=== PATIENT | female | born 1955 | race Caucasian/White ===

== ENCOUNTER 2019-06-18 07:00 | Inpatient (IN) ==
[2019-06-18] MEDS ORDERED: TORADOL IV ONE (07:59)
[2019-06-18] MEDS ORDERED: BENADRYL IV ONE (07:59)
[2019-06-18] MEDS ORDERED: ZOSYN 4.5 GM in NS 100 ML IV ONE (07:59)
[2019-06-18] MEDS ORDERED: REGLAN IV ONE (07:59)
[2019-06-18] MEDS ORDERED: DILAUDID IV ONE ×2 (07:59→09:56)
[2019-06-18] MEDS ORDERED: NS 1,000 ML IV ONE ×2 (07:59→09:51)
[2019-06-18 08:59] LABS: URINE SOURCE CLEAN CATCH
[2019-06-18 09:05] LABS: BILIRUBIN URINE NEGATIVE (NEGATIVE); BLOOD URINE NEGATIVE (NEGATIVE); COLOR YELLOW; GLUCOSE URINE NEGATIVE (NEGATIVE); KETONE URINE NEGATIVE (NEGATIVE); LEUKOCYTES URINE NEGATIVE (NEGATIVE); NITRITE URINE NEGATIVE (NEGATIVE); PH URINE 5.5; PROTEIN URINE TRACE mg/dL (NEGATIVE); SP GRAVITY URINE 1.023; TURBIDITY URINE HAZY (CLEAR); UROBILINOGEN URINE NORMAL (NORMAL)
[2019-06-18 09:16] LABS: UR EPITHELIAL CELLS >10 /HPF (<10); URINE BACTERIA NEGATIVE /HPF; URINE RBC <10 /HPF (<10); URINE WBC <10 /HPF (<10)
[2019-06-18 09:19] LABS: URINE CRYSTALS NONE SEEN
--- NOTE | 2019-06-18 09:42 | Diag Imaging Result Doc PS360 ---
CT ABD/PELVIS W/IV CONT ONLY - 06/18/2019 INDICATION: RLQ abdominal pain COMPARISON: 06/06/2017 FINDINGS: Stable breast implants. Lung volumes are low with some scattered linear atelectasis in the lung bases. No dense infiltrates. Heart size is normal with no pericardial effusion. The vermiform appendix is not particularly dilated, measuring only about 7 mm. The appendix is fluid-filled. However there is an extensive inflammatory process centered around the right lower quadrant and the appendix, with a few tiny bubbles of extra visceral gas. No significant or drainable fluid collection. This is in close proximity to a loop of sigmoid colon containing numerous diverticula. There is also wall thickening of the sigmoid colon here adjacent to this inflammatory process indicating colitis. There is trace pelvic free fluid. The gallbladder is absent. Otherwise solid abdominal organs are normal. Uterus is absent. Urinary bladder and rectum are normal. There are moderate degenerative changes of the spine. No acute or suspicious bony lesion. IMPRESSION: Extensive acute inflammatory process involving both the vermiform appendix, which is nondilated, and the sigmoid colon, which demonstrates wall thickening and numerous diverticula. This indicates either minimally perforated sigmoid diverticulitis or unusual appearance of appendicitis. There is trace free air. No drainable fluid collections. This report was discussed with Dr. Winkler on 06/18/2019 at 9:39 AM and was readback. This exam was performed using automated exposure control, adjustment of mA or kV according to patient size, and/or use of iterative reconstruction technique Electronically signed by Chadd Castro 06/18/2019 9:39 AM
[2019-06-18] MEDS ORDERED: FLAGYL 500 MG/NS 500 MG/100 ML IVPB IV ONE (09:46)
--- NOTE | 2019-06-18 09:48 | PROVIDER DOCUMENTATION ---
HPI-Abdominal Pain/GI Problem - General Chief Complaint: Abdominal Pain Stated Complaint: abd pain Time Seen by Provider: 06/18/19 07:51 Source: patient, family Allergies/Adverse Reactions: Patient Allergies Allergy/AdvReac Type Severity Reaction Status Date / Time codeine AdvReac NAUSEA/VOMI Verified 03/16/16 21:21 TING morphine AdvReac VOMITING Verified 03/16/16 21:21 naproxen [From Naprosyn] AdvReac NAUSEA/VOMI Verified 03/16/16 21:21 TING ondansetron AdvReac NAUSEA/VOMI Verified 05/18/17 23:17 [From Zofran (as TING hydrochloride)] Home Medications: Home Medication List Medication Instructions Recorded Confirmed Last Taken Type Levothyroxine [Synthroid] 125 microgm PO DAILY 07/15/15 10/30/17 10/30/17 History Metformin [Glucophage] 500 mg PO BID PRN PRN 05/08/17 10/30/17 10/27/17 History Omeprazole [Prilosec] 40 mg PO DAILY PRN PRN 05/08/17 10/30/17 10/30/17 History Polyethylene Glycol 3350 [Miralax] 17 gm PO DAILY PRN PRN 05/08/17 10/30/17 10/30/17 History Zolpidem [Ambien] 10 mg PO QHS 10/30/17 10/30/17 10/29/17 History Famciclovir [Famvir] 500 mg PO Q8HR #21 tab 05/31/19 Unknown Rx Gabapentin [Neurontin] 100 mg PO TID #90 cap 05/31/19 Unknown Rx Ketorolac [Toradol] 10 mg PO Q6H PRN PRN #30 tab 05/31/19 Unknown Rx - History of Present Illness-ABD Nature of Presenting Problems: RLQ abdominal pain since last night, gradually getting worse. Also n/v/d and chills. No blood in stool or vomit. Pain is severe. Called 911 because it hurt too much to walk. Recently been on antibiotics and antivirals for "shingles" Abdominal Pain Onset Location: reports: RLQ Pain Radiation: reports: no radiation Quality of Pain: reports: sharp, stabbing Severity in ED: reports: severe Onset/Duration: reports: 24 hours ago Timing: reports: still present, constant, getting worse Activities at Onset: reports: light activity. denies: out of country travel Exposure to sick contacts?: No Modifying Factors: improves with: nothing. worse with: coughing, movement, palpation Associated Symptoms: reports: diarrhea, fever/chills, nausea, vomiting Last BM: this morning Dark Stools Present?: reports: none noticed Rectal Bleeding: reports: none # of Vomiting Episodes: 3 Emesis Description: reports: clear Bruising or Bleeding Gums?: No Similar Symptoms Previously?: No Recently seen or treated by another doctor?: Yes (Dr. Francisco) Review of Systems - Adult - REVIEW OF SYSTEMS - ADULT Constitutional: reports: no symptoms reported Eyes: reports: no symptoms reported Ears, Nose, Mouth & Throat: reports: no symptoms reported Cardiovascular: reports: no symptoms reported Respiratory: reports: no symptoms reported Gastrointestinal: reports: no symptoms reported Genitourinary: reports: no symptoms reported Musculoskeletal: reports: no symptoms reported Integumentary: reports: no symptoms reported Neurological: reports: no symptoms reported Psychiatric: reports: no symptoms reported Endocrine: reports: no symptoms reported Hematologic/Lymphatic: reports: no symptoms reported Allergic/Immunologic: reports: no symptoms reported All Other Systems: Reviewed and Negative Past History - Adult - PAST MEDICAL HISTORY-ADULT Review of Records: reports: Old Records Reviewed, Nursing Assessment Review, Medications Reviewed, Social history reviewed & non-contributory. Major Childhood Illnesses: reports: denies history Cardiovascular: reports: denies history Respiratory: reports: denies history Gastrointestinal: reports: diverticulosis Obstetrical/Gynecological: reports: denies history Genitourinary: reports: denies history Musculoskeletal: reports: denies history Neurological: reports: denies history Psychiatric: reports: anxiety Endocrine/Immune: reports: Diabetes, thyroid disorder Diabetes Type: Type 2 Diabetes controlled by:: PO Meds Other Conditions: reports: denies history - PRIOR SURGERIES/PROCEDURES Surgical/Procedure History: reports: reviewed, not pertinent, cholecystectomy, hysterectomy - IMMUNIZATION STATUS Childhood Immunizations: See Nurse Assessment Flu Vaccine: See Nurse Assessment - FAMILY HISTORY Family History: reviewed, not pertinent - SOCIAL HISTORY Smoking: non-smoker Substance Use: none/never Alcohol Use Frequency: rarely Living Situation: family Physical Exam-General - PHYSICAL EXAM-ADULT Initial Vital Signs Reviewed: Yes (VSSAF) - CONSTITUTIONAL General Appearance: appears well (but in pain, lying on left side), alert, mild distress - EYES Eyes: PERRL/EOMI, pink conjunctivae - HEAD, EARS, NOSE, MOUTH & THROAT HENMT: normocephalic/atraumatic, normal ENT inspection, pharynx normal. negative: moist mucous membranes (dry) - NECK Neck: full range of motion, supple, normal inspection - RESPIRATORY Respiratory: lungs clear, normal breath sounds, no pleuratic chest pain, no respiratory distress, no accessory muscle use - CARDIOVASCULAR Cardiovascular: normal peripheral pulses, regular rate, rhythm, no edema, no gallop, no JVD, no murmur - GASTROINTESTINAL (ABDOMEN) Abdominal Exam: no organomegaly, no pulsatile mass, abnormal bowel sounds (hypoactive), distended, guarding, rebound, tenderness (RLQ), McBurney's point tenderness, obturator sign, psoas sign, Rovsing's sign. negative: normal bowel sounds, non tender, soft, De La Torre's sign - LYMPHATIC Lymphatic: no adenopathy - MUSCULOSKELETAL Back Exam: normal inspection, no CVA tenderness, no vertebral tenderness. negative: decreased range of motion Extremity: normal range of motion, non-tender, normal gait, normal inspection, no pedal edema, no calf tenderness, normal capillary refill - SKIN Integumentary: normal color, normal turgor, warm/dry - NEUROLOGIC Neurologic: technical support analyst II-XII nml as tested, grossly normal, no motor/sensory deficits - PSYCHIATRIC Psych/Mental Status: normal mood/affect, normal thought content, normal thought process, oriented x 3 Progress - PLAN OF CARE/RESULTS Progress/Plan/Lab Results: Vital Signs - 8 hr 06/18/19 07:17 Temperature 99.5 F Pulse Rate 94 H Respiratory Rate 20 Blood Pressure 121/78 O2 Sat by Pulse Oximetry 93 L Laboratory Results - last 24 hr 06/18/19 08:54 Urine Source CLEAN CATCH Urine Color YELLOW Urine Turbidity HAZY Urine pH 5.5 Ur Specific [place] 1.023 Urine Protein TRACE A Ur Glucose (Stick) NEGATIVE Ur Ketones (Stick) NEGATIVE Urine Blood NEGATIVE Urine Nitrite NEGATIVE Urine Bilirubin NEGATIVE Urobilinogen Dipstick NORMAL Urine Leukocytes NEGATIVE Urine WBC (Auto) <10 Urine RBC (Auto) <10 U Epithel Cells (Auto) >10 A Urine Bacteria (Auto) NEGATIVE Urine Crystals NONE SEEN Small Round Cells Not Reportable Urine Casts Not Reportable Urine Yeast-like Cells Not Reportable Orders Category Date Time Status NEWS Score 2-4:Order NEWS Lactate Series NOW Care 06/18/19 07:25 Active Saline Loc DIRECTED Care 06/18/19 07:58 Active NPO Diet 06/18/19 07:[address] ABD/PELVIS W/IV CONT ONLY [CT] Stat Exams 06/18/19 09:20 Taken FLAT/UPRIGHT ABD/1 VIEW CHEST [RAD] Stat Exams 06/18/19 07:58 Ordered AMYLASE [CHEM] Stat Lab 06/18/19 07:58 Uncollected BLOOD CULTURE [BLDCUL] Stat Lab 06/18/19 07:59 Uncollected C REACTIVE PROT QUANT [CHEM] Stat Lab 06/18/19 08:00 Uncollected CBC WITH ELECTRONIC DIFF [HEME] Stat Lab 06/18/19 07:58 Uncollected COMPREHENSIVE METABOLIC PANEL [CHEM] Stat Lab 06/18/19 07:58 Uncollected LACTATE, PLASMA [CHEM] Q3H Lab 06/18/19 07:30 Uncollected LACTATE, PLASMA [CHEM] Q3H Lab 06/18/19 10:30 Uncollected LACTATE, PLASMA [CHEM] Q3H Lab 06/18/19 13:30 Uncollected LIPASE [CHEM] Stat Lab 06/18/19 07:58 Uncollected TYPE & SCREEN [BBK] Stat Lab 06/18/19 07:58 Uncollected URINALYSIS W/POSS RFLX CULT [URINALYSIS] Stat Lab 06/18/19 08:54 Completed URINE MANUAL MICROSCOPIC [URINALYSIS] Stat Lab 06/18/19 08:54 Completed 0.9% Sodium Chloride Inj [Ns] 1,000 ml Med 06/18/19 07:59 Discontinued IV 999 mls/hr Diphenhydramine [Benadryl] Med 06/18/19 07:59 Discontinued 25 mg IV NOW ONE Hydromorphone [Dilaudid] Med 06/18/19 07:59 Discontinued 1 mg IV NOW ONE Ketorolac [Toradol] Med 06/18/19 07:59 Discontinued 30 mg IV NOW ONE Metoclopramide [Reglan] Med 06/18/19 07:59 Discontinued 10 mg IV NOW ONE Piperacillin/Tazobactam [Zosyn] 4.5 gm Med 06/18/19 07:59 Discontinued 0.9% Sodium Chloride Inj [Ns] 100 ml IV NOW Labs pending, at this time, as patient had to be transferred to [place] for CT abd/pelvis. - REASSESSMENT Reassessment #1 Time Reassessed: 10:01 Status: improving (decreased pain with Dialudid/reglan/benadryl. Also given IVF bolus and zosyn/flagyl) - CT/MRI 1 CT Study: Abdomen Impression: Abnormal, See EMR Report (Signed CT ABD/PELVIS W/IV CONT ONLY - 06/18/2019 INDICATION: RLQ abdominal pain COMPARISON: 06/06/2017 FINDINGS: Stable breast implants. Lung volumes are low with some scattered linear atelectasis in the lung bases. No dense infiltrates. Heart size is normal with no pericardial effusion. The vermiform appendix is not particularly dilated, measuring only about 7 mm. The appendix is fluid-filled. However there is an extensive inflammatory process centered around the right lower quadrant and the appendix, with a few tiny bubbles of extra visceral gas. No significant or drainable fluid collection. This is in close proximity to a loop of sigmoid colon containing numerous diverticula. There is also wall thickening of the sigmoid colon here adjacent to this inflammatory process indicating colitis. There is trace pelvic free fluid. The gallbladder is absent. Otherwise solid abdominal organs are normal. Uterus is absent. Urinary bladder and rectum are normal. There are moderate degenerative changes of the spine. No acute or suspicious bony lesion. IMPRESSION: Extensive acute inflammatory process involving both the vermiform appendix, which is nondilated, and the sigmoid colon, which demonstrates wall thickening and numerous diverticula. This indicates either minimally perforated sigmoid diverticulitis or unusual appearance of appendicitis. There is trace free air. No drainable fluid collections. This report was discussed with Dr. Winkler on 06/18/2019 at 9:39 AM and was readback. This exam was performed using automated exposure control, adjustment of mA or kV according to patient size, and/or use of iterative reconstruction technique Electronically signed by Chadd Castro 06/18/2019 9:39 AM 06/18/19 [id number] Interpreting Physician: Chadd Castro MD Dictated Date/Time: 06/18/19 9443 cc: Kevin Winkler MD; Fina Francisco MD) - CONSULTS/PCP/HOSPITALIST Notification #1 *Consult/PCP/Hospitalist*: Surgeon paged at 0940 Time Discussed: 09:46 Reason/Comments: Matt Consult Disposition: other (admit to PCP, will see) #2 Consult: Nolan paged at 0945 Time Discussed: 09:55 Consult Disposition: Admit Departure - Departure Date of Disposition Decision: 06/18/19 Time of Disposition Decision: 09:43 DIAGNOSIS: RLQ abdominal pain, Perforation of sigmoid colon due to diverticulitis, Peritonitis with abscess of intestine Type 2 diabetes mellitus Qualifiers: Diabetes mellitus continuous churn buttermaker insulin use: without detention use Diabetes mellitus complication status: with hyperglycemia Qualified Code(s): E11.65 - Type 2 diabetes mellitus with hyperglycemia Disposition: ADMITTED INPATIENT 09 Certified Medical Emergency: Emergent Condition: Fair Referrals and Follow-Ups: Fina Francisco MD [Primary Care Provider] - - Critical Care Note This patient required my direct & personal management of CC.: Yes Total Time (mins): 40 Critical Care Statement: This patient required my direct personal management to treat or rule out processes, the absence of which, could potentiallly result in sudden, clinically significant life or limb threatening deterioration. Attestation - Physician/ ALFONZO Attestation Patient care was provided by Advanced Practice Provider:: No The physician spent face to face time with patient:: Yes Advanced Practice Provider documentation review:: Supervising physician onsite and consulted in the evaluation and care of this patient. The physician did have a face to face encounter with the patient.
[2019-06-18 10:39] LABS: AGAP 10; ALB/GLOB RATIO 1.1; ALBUMIN 3.6 g/dL (3.5-5.0); ALKALINE PHOSPHATASE 74 U/L (32-104); AMYLASE 23 U/L (20-200); BUN 25 mg/dL (8-22); C REACTIVE PROT QUANT 64.27 mg/L (0.00-5.00); CALCIUM 8.5 mg/dL (8.8-10.2); CHLORIDE 105 mmol/L (98-107); COSMO 282; CREATININE 0.9 mg/dL (0.5-0.9); ESTIMATED GFR > 60; GLUCOSE 194 mg/dL (70-104); GOT 20 U/L (10-30); GPT 31 U/L (10-36); LIPASE 8 U/L (13-60); POTASSIUM 4.8 mmol/L (3.5-5.1); SODIUM 136 mmol/L (136-145); TCO2 21 mmol/L (25-35); TOTAL BILIRUBIN 0.67 mg/dL (0.20-1.00); TOTAL PROTEIN 6.8 g/dL (6.3-8.3)
[2019-06-18 10:43] LABS: BASO# 0.01 X1000 (0.0-0.2); BASO% 0.1 % (0.0-0.8); HEMATOCRIT 42.3 % (37.0-47.0); IMM GRAN# 0.02 X1000 (0.0-0.04); IMM GRAN% 0.2 % (0.0-0.5); LYMPH# 0.94 X1000 (1.2-3.4); LYMPH% 9.7 % (20.5-51.1); MCH 32.5 PG (27-31); MCHC 33.1 g/dL (33-37); MCV 98.1 FL (81-99); MONO# 0.72 X1000 (0.11-0.59); MONO% 7.4 % (1.7-9.3); MPV 10.4 FL (7.4-10.4); NEUT% 82.6 % (42.2-75.2); PLT 205 X1000 (130-400); RBC 4.31 XMIL (4.2-5.4); RDW 13.1 % (11.5-14.5); WBC 9.69 X1000 (4.8-10.8)
[2019-06-18] MEDS: ZOSYN 4.5 GM in NS 100 ML IV SCH ×3 (10:43→20:30)
[2019-06-18 10:48] LABS: ACETONE SERUM NEGATIVE (NEGATIVE)
[2019-06-18] MEDS: FLAGYL 500 MG/NS 500 MG/100 ML IVPB IV SCH ×2 (11:56→17:35)
[2019-06-18] MEDS: DILAUDID IV PRN ×2 (15:00→20:31)
--- NOTE | 2019-06-18 16:50 | Diag Imaging Result Doc PS360 ---
CHEST-1 VIEW - 06/18/2019 INDICATION: sepsis protocol COMPARISON: 05/28/2019 FINDINGS: The lungs are normally expanded and clear. Heart size and mediastinal contours are normal. No pneumothorax or pleural effusion. IMPRESSION: Negative exam. Electronically signed by Chadd Castro 06/18/2019 4:48 PM
[2019-06-18 16:53] LABS: BASO# 0.02 X1000 (0.0-0.2); BASO% 0.2 % (0.0-0.8); HEMOGLOBIN 13.1 g/dL (12.0-16.0); IMM GRAN# 0.06 X1000 (0.0-0.04); IMM GRAN% 0.6 % (0.0-0.5); LYMPH# 1.09 X1000 (1.2-3.4); LYMPH% 11.1 % (20.5-51.1); MCH 32.4 PG (27-31); MCHC 32.8 g/dL (33-37); MONO# 0.37 X1000 (0.11-0.59); MONO% 3.8 % (1.7-9.3); NEUT# 8.31 X1000 (1.4-6.5); NEUT% 84.3 % (42.2-75.2); PLT 187 X1000 (130-400); RBC 4.04 XMIL (4.2-5.4); WBC 9.85 X1000 (4.8-10.8)
[2019-06-18 17:00] LABS: INR 1.14; PROTIME 14.8 Seconds (11.0-16.0)
[2019-06-18 17:01] LABS: PTT 28.6 Seconds (22.3-41.8)
[2019-06-18 17:09] LABS: ALB/GLOB RATIO 1.4; ALBUMIN 3.7 g/dL (3.5-5.0); CALCIUM 8.1 mg/dL (8.8-10.2); POTASSIUM 4.4 mmol/L (3.5-5.1); TOTAL BILIRUBIN 1.15 mg/dL (0.20-1.00); TOTAL PROTEIN 6.4 g/dL (6.3-8.3)
--- NOTE | 2019-06-18 19:05 | GENERAL SURGERY CONSULTATION ---
DATE: 06/18/2019 REASON FOR CONSULTATION: Diverticulitis. CHIEF COMPLAINT: Abdominal pain. HISTORY OF PRESENT ILLNESS: This is a 63-year-old female who is otherwise reasonably healthy. Over the course of the day yesterday she felt as though she may be constipated. She did not take any laxatives, but about 10 o'clock last night she developed worsening lower abdominal pain with some nausea and vomiting. Denies any GI bleeding. Otherwise, prior to this she has been in her usual state of health. She came the ER where CT scan was obtained and showed a contained microperforation in the sigmoid colon. She was started on antibiotics and was admitted for further management. She had a colonoscopy three years ago that was reportedly normal or maybe had some benign polyps but no concerning findings. She denies any weight loss. No fevers. SURGICAL HISTORY: She has had a cholecystectomy and a hysterectomy SOCIAL HISTORY: She does not smoke and drink. Her is here with her. I do not believe she works. REVIEW OF SYSTEMS: Ten point negative other than what is mentioned in the HPI. FAMILY HISTORY: Negative for colon or rectal carcinoma. PHYSICAL EXAMINATION: Vital Signs: She is afebrile. Pulse 79, blood pressure 114/59, oxygen saturation 95%. General: She is alert. She appears uncomfortable, in no acute distress. HEENT: no scleral icterus. Neck: No cervical mass. Cardiovascular: Normal rate. Pulmonary: No increased work of breathing. Abdomen: Soft, mildly distended. She is tender in the lower abdomen quadrants, but I do not detect any diffuse peritonitis. She moves about the bed without discomfort. Skin: Warm, dry without jaundice. Psychiatric: Appropriate affect. Neurologic: No gross deficits. Lymphatics: I do not feel any cervical or axillary adenopathy. LABORATORY DATA: White count 9, hematocrit 40, platelets 187,000. Creatinine is 1.0. LFTs show mild elevation of bilirubin. AST, ALT, alkaline phosphatase normal. Lipase is normal. Her lactate has been mildly elevated. Urinalysis in the 2 range, negative for leukocytes. IMAGING: I reviewed her CT scan. ASSESSMENT AND PLAN: This is a 63-year-old female with microperforation within the mesentery in the retroperitoneum of the sigmoid colon. I do not detect free intraperitoneal air and most of this seems contained. I do not see a large abscess and she does not have anabella peritonitis, although she is quite tender in the lower quadrants of her abdomen. I discussed with the patient the plan for bowel rest, IV antibiotics and possible progression towards IV antibiotics. There were some findings of possible appendicitis, although I think her sigmoid colon is quite redundant and extends to the right lower quadrant. I suspect this inflammation is all related to her sigmoid diverticulitis, more so than any acute appendicitis issues. We will follow her closely. Follow her white blood cell count, vital signs, and serial abdominal exams. If she worsens, she will need emergent sigmoid colectomy with possibly end colostomy. We did discuss the high probability of colostomy. We also discussed possibility that she may require more interval operation and long-term antibiotics. She understands all of this and consents. We will keep her n.p.o. with antibiotics, following her closely. cc: MD Camden Ann MD MTDD
[2019-06-18] MEDS ORDERED: NEXIUM IV SCH (19:15)
[2019-06-18] MEDS ORDERED: SODIUM CHLORIDE 0.9% INJ SCH (19:15)
[2019-06-18] MEDS: PROTONIX IV SCH (20:30)
[2019-06-18] MEDS: LOVENOX SUBQ SCH (20:30)
[2019-06-18] MEDS ORDERED: TYLENOL PO PRN ×2 (20:48→20:57)
[2019-06-18] MEDS: SODIUM CHLORIDE 0.9% INJ SCH (21:10)
[2019-06-18] MEDS: NS 1,000 ML IV SCH (21:11)
--- NOTE | 2019-06-18 21:27 | HISTORY AND PHYSICAL ---
CHIEF COMPLAINT: Abdominal pain since yesterday. HISTORY OF PRESENT ILLNESS: She is a 71-year-old white female came into the emergency room with a 1-day history of lower abdominal pain constipated. Apparently pain is excruciating. Came to the emergency room. CT scan was obtained. It showed a contained microperforation in the sigmoid colon. The patient was admitted to the hospital for diverticulitis. She was started on IV antibiotics, IV fluids. Surgical consult was obtained by Dr. Edis Gutierrez. Recently, she was discharged from the hospital for shingles and a right T4 lesion. As a result, a hospital admission was warranted. PAST MEDICAL HISTORY: 1. Idiopathic ascites, resolved. 2. Depression. 3. Hypothyroidism. 4. Glucose intolerance. 5. Status post right breast malignancy. 6. Menopause. 7. Vitamin B12 deficiency. 8. Right T4 shingles. PAST SURGICAL HISTORY: Cholecystectomy, complete hysterectomy except right ovary, bilateral mastectomy with reconstruction by Dr. Mcmahan and Dr. Craven. ALLERGIES: Reported to amoxicillin, Glucophage and Naproxen. SOCIAL HISTORY: Living in [place]. Smoking 1 pack a day. Socially drinks alcohol. Retired. with 3 children. FAMILY HISTORY: Father of lung cancer at 76. Mom of brain cancer at 52. MEDICATIONS: Synthroid 125 mcg daily, Ambien 10 at bedtime, vitamin D 50,000 once a week. REVIEW OF SYSTEMS: HEENT: Has a low-grade fever and no headache, no earache, no sore throat. Neck: No goiter. No lymphadenopathy. No bruit. Cardiopulmonary: No chest pain, shortness of breath, PND, orthopnea. GI: Lower abdominal pain, constipation. No bleeding per rectum. : No history of hesitancy, frequency, dysuria. No swelling of legs. No joint pain. Neurologic: No focal symptoms or weakness. OBJECTIVE: Vital signs: Temperature is 98.5 degrees, pulse 79, blood pressure is 114/59. HEENT: Atraumatic, normocephalic. Pupils equal, react to light. TMs are normal. Nose and throat within normal limits. Neck: Supple. No lymphadenopathy. No goiter. Chest: Bilateral air entry. Heart: Sounds are regular. No murmurs. Abdomen: Belly is soft, diffusely tender, slightly guarding. No signs of peritonitis. No peripheral edema cyanosis. Neurological: No obvious neurological deficits. INVESTIGATIONS: White cell count 9.8, hematocrit 40, platelet 187,000, PT 14, INR 1.1. Sodium 138, potassium 4.4, BUN 25, creatinine 1.0, and total bilirubin slightly elevated. Plasma lactate 2.5. Urinalysis is clear. CT chest x-ray: Negative exam. Abdominal CT pelvis: Extensive inflammatory process involving the sigmoid colon with microperforation along with elongated vermiform appendix. There is a trace free air. Gallbladder was absent. Uterus was absent. ASSESSMENT AND PLAN: 1. A 63-year-old white female admitted to the hospital with abdominal pain due to diverticulitis with also possible appendicitis. On conservative management, NPO, currently receiving IV fluids, Flagyl and Zosyn for pain control with Dilaudid and Toradol. 2. Nausea. On Phenergan. Only ice chips. 3. Deep venous thrombosis and gastrointestinal prophylaxis as per order sheet and we will continue to monitor on a clinical basis. We will discuss with Dr. Gutierrez. We will follow up and discussed with the family. cc: Camden Francisco MD
[2019-06-18] MEDS: TORADOL IV PRN (22:43)
[2019-06-19] MEDS: ZOSYN 4.5 GM in NS 100 ML IV SCH ×5 (00:11→21:43)
[2019-06-19] MEDS: DILAUDID IV PRN ×6 (00:27→21:35)
[2019-06-19] MEDS: FLAGYL 500 MG/NS 500 MG/100 ML IVPB IV SCH ×5 (00:27→19:56)
[2019-06-19] MEDS: NS 1,000 ML IV SCH ×2 (06:21→08:10)
[2019-06-19] MEDS: TORADOL IV PRN ×3 (06:27→19:55)
[2019-06-19] MEDS ORDERED: SODIUM CHLORIDE 0.9% INJ ONE (08:50)
[2019-06-19] MEDS: SYNTHROID IV SCH (10:06)
--- NOTE | 2019-06-19 16:55 | GENERAL SURGERY PROGRESS NOTE ---
DATE: 06/19/2019 SUBJECTIVE: Pain is better. She did have a single episode of fever overnight, but has been afebrile. No tachycardia throughout the day today. OBJECTIVE: Blood pressure 120/68, oxygen saturation 95%. General: She is alert. Cardiovascular: Normal rate. Pulmonary: No increased work of breathing. Abdomen: Her abdomen is softer, less distended, only mild tenderness in the lower quadrants. She has had some urgency with urination. LABORATORY DATA: White count repeat last night was again stable at 9, hematocrit is 40, creatinine is 1.0. ASSESSMENT AND PLAN: A 63-year-old female with a contained perforation of diverticulitis. There is no abscess. There is no free intraperitoneal air. She does not have peritonitis on exam, but she is tender in the lower quadrants. She does seem clinically improved. We will repeat her labs tomorrow. Continue broad-spectrum antibiotics as current. Bowel rest. I am going to give her sips of clear liquids at her request. She does seem to be voiding, although she is still having some urinary symptoms. We will monitor this as well. cc: MD Camden Ann MD
[2019-06-19] MEDS: SODIUM CHLORIDE 0.9% INJ SCH (19:56)
[2019-06-19] MEDS: PROTONIX IV SCH (19:56)
[2019-06-19] MEDS: LOVENOX SUBQ SCH (19:56)
[2019-06-19] MEDS: TYLENOL PR PRN (20:05)
--- NOTE | 2019-06-19 20:59 | PROGRESS NOTE ---
DATE: 06/19/2019 SUBJECTIVE: The patient still has a little bit of abdominal pain, passing gas. Decrease in nausea. I appreciate Dr. Gutierrez's consult. PHYSICAL EXAMINATION: Temperature is 99.7 degrees, pulse 110, vitals are stable, 93% on room air.HEENT: Within normal limits. Neck: Supple. No lymphadenopathy. Chest: Bilateral air entry. Heart: Sounds are regular, belly is soft, diffusely tender. No guarding. No peripheral edema, cyanosis. No obvious neurological deficits. INVESTIGATIONS: None reported. Blood cultures reported 1 was positive for gram-positive cocci. ASSESSMENT AND PLAN: Sigmoid diverticulitis, enlarged appendix and constipation, hypothyroidism, resolving shingles on the right T4. Plan of care is NPO with ice chips, IV Flagyl and IV fluids and IV Zosyn. We will start on Synthroid, have the dose through the IV and will continue to monitor her progress. We will check the labs, CBC, SMA-7 in the morning and CMP. We will continue to monitor. LEVEL OF DOCUMENTATION: 25 minutes. cc: Camden Francisco MD
[2019-06-20] MEDS: TORADOL IV PRN ×5 (00:05→23:43)
[2019-06-20] MEDS: DILAUDID IV PRN ×6 (00:29→18:17)
[2019-06-20] MEDS: FLAGYL 500 MG/NS 500 MG/100 ML IVPB IV SCH ×5 (02:22→20:27)
[2019-06-20] MEDS: NS 1,000 ML IV SCH ×3 (03:35→20:25)
[2019-06-20] MEDS: ZOSYN 4.5 GM in NS 100 ML IV SCH ×4 (04:29→22:33)
[2019-06-20 07:03] LABS: EOS# 0.03 X1000 (0.0-0.7); HEMATOCRIT 38.6 % (37.0-47.0); HEMOGLOBIN 12.7 g/dL (12.0-16.0); LYMPH# 0.49 X1000 (1.2-3.4); LYMPH% 16.2 % (20.5-51.1); MCH 32.7 PG (27-31); MCHC 32.9 g/dL (33-37); MCV 99.5 FL (81-99); MONO# 0.18 X1000 (0.11-0.59); MPV 10.6 FL (7.4-10.4); NEUT# 2.32 X1000 (1.4-6.5); NEUT% 76.8 % (42.2-75.2); PLT 145 X1000 (130-400); RBC 3.88 XMIL (4.2-5.4); RDW 13.4 % (11.5-14.5); WBC 3.02 X1000 (4.8-10.8)
[2019-06-20 07:38] LABS: EOS 1 % (1-10); LYMPHS 17 % (21-51); MONO 6 % (1-9); SEGS 76 % (42-75)
[2019-06-20 07:44] LABS: ALBUMIN 3.3 g/dL (3.5-5.0); CALCIUM 7.9 mg/dL (8.8-10.2); POTASSIUM 3.6 mmol/L (3.5-5.1); TOTAL PROTEIN 6.6 g/dL (6.3-8.3)
[2019-06-20] MEDS: SYNTHROID IV SCH (08:53)
--- NOTE | 2019-06-20 15:04 | Diag Imaging Result Doc PS360 ---
EXAM: KUB ABDOMEN 06/20/2019 HISTORY: abdominal distention TECHNIQUE: KUB COMMENT: The bowel gas pattern is nonspecific. There is no evidence of organomegaly or mass. Compared to 12/09/2015 the appearance of the abdomen is similar although there is more colonic gas. IMPRESSION: Nonspecific abdomen. Electronically signed by Carl Samson 06/20/2019 3:02 PM
--- NOTE | 2019-06-20 15:22 | GENERAL SURGERY PROGRESS NOTE ---
DATE: 06/20/2019 SUBJECTIVE: Some abdominal distention, but her pain is improving. She is ambulating around the room. She is having bowel function, although stools are loose. No blood. No fevers. OBJECTIVE: Vital Signs: Pulse 80, blood pressure 100/48, oxygen saturation 97%. General: She is alert. Cardiovascular: Normal rate. Abdomen: Soft, mildly distended, but the tenderness is improved. LABORATORY DATA: White count is 3, hematocrit is 38, creatinine is 1.0. ASSESSMENT AND PLAN: This is a 63-year-old female with a contained perforation of diverticulitis. She is having bowel function. Her pain seems to be improving. She has had no fevers in the last 24 hours. White count has decreased. She does have some distention. I have encouraged her to go very slow with sips of liquids only for comfort. We will continue to follow her going forward with antibiotics. I do think she is making gradual improvement, but if she fails to continue to improve, she will need a sigmoid colectomy, which she is apprehensive to undergo. cc: MD Camden Ann MD
[2019-06-20] MEDS ORDERED: RELISTOR SUBQ ONE (18:27)
[2019-06-20] MEDS: SODIUM CHLORIDE 0.9% INJ SCH (20:26)
[2019-06-20] MEDS: LOVENOX SUBQ SCH (20:26)
[2019-06-20] MEDS: PROTONIX IV SCH (20:26)
--- NOTE | 2019-06-20 20:53 | PROGRESS NOTE ---
DATE: 06/20/2019 SUBJECTIVE: The patient had several bowel movements and this afternoon belly got distended, taking a lot of pain medicine. KUB showed ileus. REVIEW OF SYSTEMS: Abdominal distention and pain. OBJECTIVE: Vital signs: Temperature is 98 degrees, pulse is 72. Vitals are stable. HEENT: Within normal limits. Neck: Supple. Chest: Bilateral air entry. Cardiovascular: Heart sounds are regular. Abdomen: Belly is soft and good bowel sounds. No signs of peritonitis noted. Neurological exam: Nonfocal. INVESTIGATIONS: White cell count 3.0, hematocrit 38, platelets 148,000. Sodium 139, potassium 3.6, BUN 30, creatinine 1.0. Microbiology: C difficile was negative. Blood cultures gram-positive cocci. ASSESSMENT AND PLAN: 1. Sigmoid diverticulitis and enlarged appendix. Continue the Flagyl and Zosyn. 2. Diarrhea. Clostridium difficile is negative. Continue intravenous fluids. 3. Ileus probably from the narcotics, and we will give her Relistor and nausea medicine and Toradol as needed and stretching the Dilaudid every q.6 hours. Continue intravenous fluids, out of the bed with physical therapy. 4. Deep venous thrombosis and gastrointestinal prophylaxis as planned and continue on n.p.o. with ice chips. I appreciate Dr. Gutierrez's consult. LEVEL OF DOCUMENTATION: 35 minutes. cc: Camden Francisco MD MTDD
[2019-06-21] MEDS: TORADOL IV PRN ×2 (02:50→06:59)
[2019-06-21] MEDS: FLAGYL 500 MG/NS 500 MG/100 ML IVPB IV SCH ×4 (03:41→22:35)
[2019-06-21] MEDS: NS 1,000 ML IV SCH (03:44)
[2019-06-21] MEDS: ZOSYN 4.5 GM in NS 100 ML IV SCH ×3 (04:55→17:08)
--- NOTE | 2019-06-21 09:12 | Diag Imaging Result Doc PS360 ---
EXAM: CHEST-2 VIEWS INDICATION: SOB TECHNIQUE: 2 views COMPARISON: 06/18/2019 FINDINGS: There has been development of tiny bilateral pleural effusions and bibasilar atelectasis since the previous study. No other new consolidation is appreciated. Cardiac silhouette is stable. IMPRESSION: Development of trace bilateral pleural effusions and bibasilar atelectasis. Electronically signed by Wiliam Bruce 06/21/2019 9:09 AM
--- NOTE | 2019-06-21 09:15 | Diag Imaging Result Doc PS360 ---
EXAM: ABDOMEN FLAT/UPRIGHT 06/21/2019 HISTORY: pain TECHNIQUE: Flat and upright abdomen COMMENT: There is pneumoperitoneum. This is particularly notable under the left hemidiaphragm. The bowel gas pattern is otherwise nonspecific in appearance. There is no evidence of organomegaly or mass. IMPRESSION: Pneumoperitoneum. The findings were discussed with Fina Francisco MD at 06/21/2019 9:12 AM. Electronically signed by Carl Samson 06/21/2019 9:12 AM
[2019-06-21] MEDS: DEMEROL IV PRN ×3 (09:43→22:34)
[2019-06-21] MEDS ORDERED: REGLAN ONE (10:02)
[2019-06-21] MEDS ORDERED: PEPCID ONE (10:03)
[2019-06-21] MEDS ORDERED: FENTANYL ONE (10:20)
[2019-06-21] MEDS ORDERED: DIPRIVAN 1% ONE (10:20)
[2019-06-21] MEDS ORDERED: VERSED ONE (10:25)
[2019-06-21] MEDS ORDERED: ALBUMIN 25% ONE (10:58)
[2019-06-21] MEDS ORDERED: QUELICIN (DOSE) ONE (11:17)
[2019-06-21] MEDS ORDERED: XYLOCAINE-MPF 2% ONE (11:17)
[2019-06-21] MEDS ORDERED: DECADRON ONE (11:17)
[2019-06-21] MEDS ORDERED: OFIRMEV 1000 MG/ISOTONIC SOLN 1,000 MG/100 ML BOTTLE ONE (11:17)
[2019-06-21] MEDS ORDERED: ZEMURON ONE (11:17)
--- NOTE | 2019-06-21 11:40 | GENERAL SURGERY PROGRESS NOTE ---
DATE: 06/21/2019 SUBJECTIVE: She had worsening abdominal distention, pain overnight. She remains hemodynamically stable. Abdominal x-ray yesterday evening showed no significant changes, but this morning shows increasing free air below the diaphragm. OBJECTIVE: On exam she is alert. She appears uncomfortable. Cardiovascular: No tachycardia. Her blood pressure is 124/71 this morning. Her oxygen saturation is 95%. General: She is alert. Her abdomen is distended. It is tender throughout, but not especially rigid. Her integument is warm and dry. LABS: She has not had repeat labs this morning, but yesterday her hematocrit was stable and her white count was 3. Creatinine was 1.0. ASSESSMENT AND PLAN: A 64-year-old female with now free perforation of a contained diverticulitis. Given her change in abdominal exam and imaging, I have recommended proceeding with emergent operation. I have talked to the patient about the need for sigmoid colectomy and colostomy. We discussed the risks of bleeding, infection, what colostomy entails, anticipated recovery, possibility of worsening infection and the need for ultimately colostomy reversal or other surgeries. She understands all this and consents. I have talked to the via phone as well. She is on antibiotics. We will proceed emergently for sigmoid colectomy with end- colostomy and all indicated procedures. cc: MD Camden Ann MD
[2019-06-21] MEDS ORDERED: LR 1,000 ML ONE (12:55)
[2019-06-21] MEDS: DILAUDID ONE ×2 (13:23→13:29)
[2019-06-21] MEDS: LR 1,000 ML IV SCH ×2 (14:44→23:03)
[2019-06-21 15:00] LABS: URINE SOURCE CATH
[2019-06-21] MEDS: SYNTHROID IV SCH (15:12)
[2019-06-21 15:29] LABS: BILIRUBIN URINE NEGATIVE (NEGATIVE); BLOOD URINE NEGATIVE (NEGATIVE); COLOR YELLOW; GLUCOSE URINE NEGATIVE (NEGATIVE); KETONE URINE 60 mg/dL (NEGATIVE); LEUKOCYTES URINE NEGATIVE (NEGATIVE); NITRITE URINE NEGATIVE (NEGATIVE); PROTEIN URINE 100 mg/dL (NEGATIVE); SP GRAVITY URINE 1.031; TURBIDITY URINE CLEAR (CLEAR); UR EPITHELIAL CELLS <10 /HPF (<10); URINE BACTERIA NEGATIVE /HPF; URINE RBC <10 /HPF (<10); URINE WBC <10 /HPF (<10); UROBILINOGEN URINE NORMAL (NORMAL)
[2019-06-21 15:29] LABS: AGAP 13; BUN 19 mg/dL (8-22); CALCIUM 7.7 mg/dL (8.8-10.2); CHLORIDE 111 mmol/L (98-107); COSMO 288; CREATININE 0.5 mg/dL (0.5-0.9); ESTIMATED GFR > 60; GLUCOSE 140 mg/dL (70-104); MAGNESIUM 1.7 mg/dL (1.5-2.7); POTASSIUM 3.1 mmol/L (3.5-5.1); SODIUM 142 mmol/L (136-145); TCO2 18 mmol/L (25-35)
[2019-06-21 15:32] LABS: URINE CASTS GRANULAR PRESENT; URINE CRYSTALS NONE SEEN; URINE YEAST NONE SEEN
--- NOTE | 2019-06-21 18:12 | OPERATIVE NOTE ---
PROCEDURE DATE: 06/21/2019 PREOPERATIVE DIAGNOSES: Perforated diverticulitis with peritonitis. POSTOPERATIVE DIAGNOSES: Perforated diverticulitis with peritonitis. PROCEDURES PERFORMED: 1. Sigmoid colectomy with end-colostomy. 2. Open appendectomy. ESTIMATED BLOOD LOSS: 50 mL. SPECIMENS: 1. Sigmoid colon. 2. Appendix. DRAINS: Enmanuel drain was left in the appendix and adjacent to the appendiceal stump. FINDINGS: There were feculent and enteric contents throughout all quadrants of the abdomen. This seemed to be relatively acute. There was some fibrinous tissue over the omentum, but no significant inflammation of the small bowel, stomach, or duodenum. The liver appeared normal. There was a dense inflammatory change of the sigmoid colon with a perforation into the retroperitoneum along the right lateral pelvic sidewall. The appendix was adherent to this area as well. It was densely inflamed, but did not appear perforated. The more proximal descending colon was well perfused as was the rectal stump. PURCHASING/RECEIVING: Dr. Garza was present. He facilitated exposure, resection, and identification of anatomy distorted by the acute inflammatory process. OPERATIVE NOTE: Risks, benefits, and alternatives were discussed with the patient and her . Both consented to the procedure. She was taken emergently to the operating room for above procedure. A Segura catheter was placed as well as a nasogastric tube. She is on scheduled antibiotics and these were confirmed. Her abdomen was prepped with chlorhexidine solution and draped in the usual fashion. After time-out, a midline incision was made and carried down to the fascia. The fascia was incised and the abdomen was entered in an open controlled fashion. A large amount of feculent enteric contents was expressed out of the abdomen and all quadrants were suctioned until clear. We systematically inspected that most of this seemed to be emanating from the pelvis and tracking along the pericolic gutter into the upper quadrants of the abdomen. The stomach was soft with no evidence perforation, the duodenum as well, and the retroperitoneum in this location was not inflamed and there was no bile emanating from this area. We inspected the small bowel. There was no evidence of Meckel diverticulum. At this point we mobilized the sigmoid colon, both left lateral and right lateral. It was folded on itself and we unfurled this identifying a perforation in the posterior right lateral aspect. The appendix was densely adherent as well as the cecum. We mobilized this and really only the appendix was involved. We selected a proximal transection point of the colon in area of soft colon and divided this with a green-load PARISH stapler. The mesentery was thickened, but it was divided with a LigaSure device down to an area of the coalescence of the tinea below the identified perforation and a TA blue load was used to divide here passing the specimen off. Prolene sutures were used to tag the corner of the rectum for future colostomy reversal. At this point we mobilized the appendix up. LigaSure was used to divide the mesoappendix and a second fire of the 45 blue load was used to staple across the base of the appendix. This was closed well. The base did appear healthy. We copiously irrigated the abdomen removing any of the fibrinous tissue that we could with greater than 4 L of warm saline. There was no evidence of ongoing bile leakage. The retroperitoneal structures were protected. The bladder did not seem to be involved in this procedure. We placed omentum over the small bowel and placed it back in neutral position through a stab incision in right lower quadrant. A Enmanuel drain was passed down through the pelvis adjacent to the appendiceal stump and the rectal stump. A left lower quadrant incision was made and carried down incising the anterior fascia. The muscle fibers split. Using a small Venancio wound protector, the distal colon was mobilized out of this. It was not on any tension and it was well perfused. Please also note that an Venancio wound protector was used through the midline incision as well. At this point after irrigating we changed all of our dirty instruments and changed our gloves. The fascia was closed after confirming our counts were correct with a #1 looped PDS suture. We irrigated the superficial wound. We closed the skin with surgical clips and excluded the wound. We then removed the staple line and matured the colostomy in a Brooking fashion. Ostomy appliance was applied as well as a gauze Medipore dressing. Segura catheter and NG tube were continued. She tolerated this well and was transferred to recovery. I spoke with the via phone. We will continue antibiotics. cc: MD Camden Ann MD
[2019-06-21 19:25] LABS: BASO# 0.02 X1000 (0.0-0.2); BASO% 0.6 % (0.0-0.8); EOS# 0.01 X1000 (0.0-0.7); EOS% 0.3 % (0.0-10.0); HEMATOCRIT 35.9 % (37.0-47.0); HEMOGLOBIN 11.8 g/dL (12.0-16.0); IMM GRAN# 0.06 X1000 (0.0-0.04); IMM GRAN% 1.8 % (0.0-0.5); LYMPH# 0.64 X1000 (1.2-3.4); LYMPH% 19.2 % (20.5-51.1); MCHC 32.9 g/dL (33-37); MCV 97.3 FL (81-99); MONO# 0.24 X1000 (0.11-0.59); MONO% 7.2 % (1.7-9.3); MPV 10.4 FL (7.4-10.4); NEUT# 2.36 X1000 (1.4-6.5); NEUT% 70.9 % (42.2-75.2); PLT 150 X1000 (130-400); RBC 3.69 XMIL (4.2-5.4); RDW 13.7 % (11.5-14.5); WBC 3.33 X1000 (4.8-10.8)
[2019-06-21] MEDS: DILAUDID IV PRN (19:32)
[2019-06-21] MEDS ORDERED: LASIX IV ONE (20:29)
--- NOTE | 2019-06-21 20:58 | PROGRESS NOTE ---
DATE: 06/21/2019 SUBJECTIVE: A 64-year-old white female level 3 documentation was seen this morning and she was doing very poorly. Her belly was distended. She has a lot of pain on the left side going to the chest and her symptoms are clearly signs of peritonitis and I ordered a flat and upright of the abdomen and chest, showing more free air in the diaphragm. I spoke to Dr. Samson. I reviewed the pictures and has been worsening of free air on the x-ray. I did make the arrangements with Dr. Edis Gutierrez and he is going to operate this afternoon. He did call me at 4 o'clock with the intraoperative findings. The patient has appendectomy followed by a sigmoid colectomy with end- colostomy. The patient has NG tube. I did examine the patient postoperatively the 2nd time. She is feeling much better than this morning. PHYSICAL EXAMINATION: Vitals are stable and she is slightly edematous and bilateral air entry. Heart sounds are regular. Belly is soft, less distended. Segura was placed. ASSESSMENT AND PLAN: 1. Postoperative day 1 open sigmoid colectomy with colostomy with appendectomy. Continue on NG tube with low wall suction. 2. Lovenox with deep venous thrombosis prophylaxis. 3. Continue IV Flagyl and Zosyn. 4. Gastrointestinal prophylaxis with IV Protonix. 5. Hypothyroidism on IV Synthroid. 6. Continue IV fluids and will give her Lasix 1 dose now and will check the labs in the morning. LEVEL OF DOCUMENTATION: 1. 35 minutes. cc: Camden Francisco MD
[2019-06-21] MEDS: PROTONIX IV SCH (22:34)
[2019-06-21] MEDS: SODIUM CHLORIDE 0.9% INJ SCH (22:34)
[2019-06-21] MEDS: PHENERGAN IM PRN (22:40)
[2019-06-21] MEDS: LOVENOX SUBQ SCH (22:59)
[2019-06-22] MEDS: ZOSYN 4.5 GM in NS 100 ML IV SCH ×4 (00:59→23:33)
[2019-06-22] MEDS: DILAUDID IV PRN ×4 (01:04→23:33)
[2019-06-22] MEDS ORDERED: LASIX IV ONE (03:03)
[2019-06-22] MEDS: DEMEROL IV PRN ×3 (04:43→18:34)
[2019-06-22] MEDS: FLAGYL 500 MG/NS 500 MG/100 ML IVPB IV SCH ×4 (04:43→21:32)
[2019-06-22 07:03] LABS: HEMATOCRIT 37.6 % (37.0-47.0); HEMOGLOBIN 12.6 g/dL (12.0-16.0); MCH 32.5 PG (27-31); MCHC 33.5 g/dL (33-37); MCV 96.9 FL (81-99); MPV 10.6 FL (7.4-10.4); RBC 3.88 XMIL (4.2-5.4); WBC 4.32 X1000 (4.8-10.8)
[2019-06-22 07:43] LABS: AGAP 17; ALB/GLOB RATIO 1.1; ALBUMIN 2.7 g/dL (3.5-5.0); ALKALINE PHOSPHATASE 53 U/L (32-104); BUN 16 mg/dL (8-22); CALCIUM 7.8 mg/dL (8.8-10.2); CHLORIDE 110 mmol/L (98-107); COSMO 297; CREATININE 0.6 mg/dL (0.5-0.9); ESTIMATED GFR > 60; GLUCOSE 122 mg/dL (70-104); GOT 15 U/L (10-30); GPT 15 U/L (10-36); POTASSIUM 2.9 mmol/L (3.5-5.1); SODIUM 148 mmol/L (136-145); TCO2 21 mmol/L (25-35); TOTAL BILIRUBIN 0.79 mg/dL (0.20-1.00); TOTAL PROTEIN 5.1 g/dL (6.3-8.3)
[2019-06-22] MEDS ORDERED: POTASSIUM CHLORIDE 80 MEQ in NS 500 ML IV ONE (08:47)
[2019-06-22] MEDS: SODIUM CHLORIDE 0.9% INJ SCH ×2 (08:59→21:40)
[2019-06-22] MEDS: SYNTHROID IV SCH (08:59)
[2019-06-22] MEDS ORDERED: MAGNESIUM SULFATE 2 GM/S.W.I. 2 GM/50 ML IVPB IV ONE (10:03)
[2019-06-22] MEDS ORDERED: POTASSIUM CHLORIDE 60 MEQ in NS 500 ML IV SCH (10:15)
--- NOTE | 2019-06-22 15:54 | GENERAL SURGERY PROGRESS NOTE ---
DATE: 06/22/2019 SUBJECTIVE: She feels much better and mostly complaining about the NG tube. She had a low-grade fever overnight 100.8, pulse 86, currently blood pressure 130/67, oxygen 95%. She is on 4 L. OBJECTIVE: General, she is alert. Her abdomen is soft. Ostomy is pink, viable. Dressing is clean. VALENTIN drain serosanguineous. White count 4, hematocrit 37, creatinine is down to 0.6, potassium is 2.9. ASSESSMENT AND PLAN: A 64-year-old female status post Jonathan's procedure with appendectomy. I have replaced her potassium, given her some magnesium. We will keep her NG tube today and possibly remove this tomorrow if she has return of ostomy function. Otherwise, will continue on antibiotics for gross contamination, high risk for intra-abdominal abscess. I talked to Dr. Francisco about her. cc: MD Camden Ann MD
[2019-06-22] MEDS: LR 1,000 ML IV SCH (16:40)
--- NOTE | 2019-06-22 20:08 | PROGRESS NOTE ---
DATE: 06/22/2019 SUBJECTIVE: I appreciated Dr. Gutierrez's consult. Intraoperative findings noted. The patient is feeling better. She was given Lasix for edema. She had good urine output and denies any complaints. OBJECTIVE: On examination, temperature is 98 degrees, pulse 100. Vital signs are stable. Decrease of facial edema. Neck is supple. Chest is clear. Heart sounds are regular. Belly is soft. Colostomy bag. No secretions noted. No peripheral edema or cyanosis. No obvious neurological deficits. LABORATORY DATA: White cell count 4.3, hematocrit 37.6, platelets 152,000. Sodium 148, potassium 2.9, chloride 110, BUN 16, creatinine 0.6, glucose 122. ASSESSMENT AND PLAN: 1. Postoperative day 2, status post sigmoid colectomy with colostomy and appendectomy. 2. Hypokalemia. 3. Hypothyroidism. 4. Plan of care: Deep venous thrombosis and gastrointestinal prophylaxis. Continue antibiotics with Flagyl and Zosyn. 5. Demerol for pain, incentive spirometry, replace the potassium. Out of the bed with physical therapy. Currently stable. Level of documentation is 25 minutes. cc: Camden Francisco MD
[2019-06-22] MEDS: PROTONIX IV SCH (21:40)
[2019-06-22] MEDS: LOVENOX SUBQ SCH (21:40)
[2019-06-22] MEDS: PHENERGAN IM PRN (21:40)
[2019-06-23] MEDS: DEMEROL IV PRN ×2 (00:48→07:51)
[2019-06-23] MEDS: PHENERGAN IM PRN ×2 (05:32→15:19)
[2019-06-23] MEDS: DILAUDID IV PRN (05:32)
[2019-06-23] MEDS: FLAGYL 500 MG/NS 500 MG/100 ML IVPB IV SCH ×2 (07:39→09:11)
[2019-06-23] MEDS: LR 1,000 ML IV SCH ×3 (07:53→07:55)
[2019-06-23] MEDS ORDERED: POTASSIUM CHLORIDE 60 MEQ in NS 500 ML IV SCH (09:00)
[2019-06-23] MEDS ORDERED: LR 1,000 ML IV SCH (09:06)
[2019-06-23] MEDS ORDERED: APRESOLINE IV PRN (09:06)
[2019-06-23] MEDS: SYNTHROID IV SCH (09:13)
[2019-06-23] MEDS: ZOSYN 4.5 GM in NS 100 ML IV SCH (09:49)
--- NOTE | 2019-06-23 12:32 | GENERAL SURGERY PROGRESS NOTE ---
DATE: 06/23/2019 SUBJECTIVE: Doing okay. Her ostomy had some gas in the bag. No fevers. No tachycardia. Her abdomen is soft. VALENTIN drain is serosanguineous. NG tube output has been minimal. Segura shows clear urine. White count is 4, hematocrit 37. These labs are from yesterday. Blood cultures are showing Staph hominis, 1/2. ASSESSMENT AND PLAN: A 64-year-old female status post Jonathan's procedure with an appendectomy. Will discontinue her nasogastric tube and Segura catheter today. She is on prophylactic Lovenox. I have encouraged her to be out of bed and ambulating. Will start low-volume clear liquid sips. She is very high risk for ileus, but she seems to have had return of bowel function via her colostomy. Will keep her on antibiotics. She will need these for at least 2 weeks postoperatively. Keep her drain for now. It is appropriately serosanguineous. cc: MD Camden Ann MD
[2019-06-23] MEDS ORDERED: APRESOLINE PO PRN (14:51)
[2019-06-23] MEDS ORDERED: KLOR-CON PO ONE (15:00)
[2019-06-23] MEDS: ULTRACET 37.5MG/325MG PO PRN ×2 (15:20→21:55)
--- NOTE | 2019-06-23 17:06 | PROGRESS NOTE ---
DATE: 06/23/2019 SUBJECTIVE: The patient is doing better. IV access is problematic. NG tube is out. Segura was out. OBJECTIVE: Vital Signs: On examination blood pressure is running a little high. HEENT: Exam within normal limits. Neck: Neck is supple Chest: Bilateral air entry. Heart: Sounds are regular. Abdomen: Belly is soft. Some gas is coming out of the colostomy. ASSESSMENT AND PLAN: Postoperative day 3. Discontinue nasogastric tube and Segura. Out of the bed with Physical Therapy. Blood pressure is running a little bit high, probably from the pain. Hydralazine as needed with intravenous access. Change the medicines by mouth and see how she does. Otherwise, she needs either PICC line or central line and continue present treatment with deep venous thrombosis prophylaxis and will follow up. LEVEL OF DOCUMENTATION: 25 minutes. cc: Camden Francisco MD
[2019-06-24] MEDS: ULTRACET 37.5MG/325MG PO PRN (04:31)
[2019-06-24] MEDS: SYNTHROID PO SCH ×2 (05:57→06:53)
[2019-06-24] MEDS: LOVENOX SUBQ SCH ×2 (05:57→06:53)
[2019-06-24] MEDS ORDERED: PROTONIX PO SCH (07:00)
[2019-06-24] MEDS ORDERED: NS 250 ML ONE (08:40)
[2019-06-24] MEDS ORDERED: LEVAQUIN PO SCH (09:00)
[2019-06-24 09:14] LABS: PROTIME 13.3 Seconds (11.0-16.0)
[2019-06-24] MEDS: DILAUDID IV PRN ×4 (10:30→22:37)
[2019-06-24] MEDS: PHENERGAN IV PRN ×2 (10:31→22:37)
[2019-06-24] MEDS ORDERED: SODIUM CHLORIDE 0.9% 10 ML ONE (10:31)
--- NOTE | 2019-06-24 14:21 | GENERAL SURGERY PROGRESS NOTE ---
DATE: 06/24/2019 SUBJECTIVE/OBJECTIVE: Doing well. Still has some gas of her ostomy, a little bit of colicky abdominal pain, drains serosanguineous. No fevers. No tachycardia. She also had a PICC line placed. Oxygen saturation is 95% on room air. Her abdomen is soft. Ostomy is pink, viable. VALENTIN drain serosanguineous. I reviewed her labs; nothing new today. ASSESSMENT AND PLAN: A 64-year-old female status post Jonathan's procedure for perforated diverticulitis. We will continue to drain antibiotics for now. We will work on pain control and encourage her to be out of bed. Keep her on clear liquids, gradually advancing as tolerated. She has had some nausea. cc: MD Camden Ann MD
[2019-06-24] MEDS ORDERED: APRESOLINE IV PRN (18:21)
--- NOTE | 2019-06-24 20:16 | PROGRESS NOTE ---
DATE: 06/24/2019 SUBJECTIVE: The patient has an IV access problematic. Try to change the medicines by mouth. She is not doing very well and she has a lot of pain and not able to tolerate the medications. OBJECTIVE: Vital signs: Temperature is 98.9 degrees, pulse 99, blood pressure is high. HEENT: Within normal limits. Neck: Supple. Chest: Clear. Heart: Sounds are regular. Abdomen: Belly is soft, nontender. INVESTIGATIONS: None. ASSESSMENT AND PLAN: Poor intravenous access. We will get a peripherally inserted central catheter line and resume some IV fluids and we will start back IV antibiotics Levaquin and we will check the labs in the morning. LEVEL OF DOCUMENTATION: 25 minutes. cc: Camden Francisco MD
[2019-06-24] MEDS: NS 1,000 ML IV SCH (22:38)
[2019-06-25] MEDS: DILAUDID IV PRN ×5 (04:43→21:52)
[2019-06-25] MEDS: TYLENOL PR PRN (04:43)
[2019-06-25 06:34] LABS: HEMATOCRIT 36.1 % (37.0-47.0); HEMOGLOBIN 12.2 g/dL (12.0-16.0); MCH 32.6 PG (27-31); MCHC 33.8 g/dL (33-37); MCV 96.5 FL (81-99); MPV 10.1 FL (7.4-10.4); RBC 3.74 XMIL (4.2-5.4); RDW 14.6 % (11.5-14.5); WBC 17.62 X1000 (4.8-10.8)
[2019-06-25] MEDS: SYNTHROID IV SCH (06:50)
[2019-06-25] MEDS: PROTONIX IV SCH (06:50)
[2019-06-25] MEDS: LOVENOX SUBQ SCH (06:51)
[2019-06-25 06:59] LABS: AGAP 15; BUN 17 mg/dL (8-22); CALCIUM 8.4 mg/dL (8.8-10.2); CHLORIDE 103 mmol/L (98-107); COSMO 279; CREATININE 0.4 mg/dL (0.5-0.9); ESTIMATED GFR > 60; GLUCOSE 93 mg/dL (70-104); POTASSIUM 3.2 mmol/L (3.5-5.1); SODIUM 139 mmol/L (136-145); TCO2 21 mmol/L (25-35)
--- NOTE | 2019-06-25 08:49 | GENERAL SURGERY PROGRESS NOTE ---
DATE: 06/25/2019 SUBJECTIVE: Feels okay. Her ostomy has had a large volume of output. She feels much better. She is tolerating her NG tube out and tolerating some clear liquids. Her abdomen is mildly distended but softer. Her VALENTIN drain is serosanguineous. Ostomy is pink, viable, stool in the bag. OBJECTIVE: I reviewed her vital signs, no fevers, pulse 90, blood pressure 169/96. LABORATORY: Show leukocytosis this morning, her hematocrit is 26. Potassium is low at 3.2, creatinine 0.4. ASSESSMENT AND PLAN: This is a 64-year-old female status post Jonathan's procedure. White count is low, but no fevers. In clinic, she looks pretty well. I asked the nurse to take her dressing off and change her ostomy bag today, will get the ostomy nurse to see her. She does have a bit of a cough. I am going to obtain a chest x-ray, and I have encouraged pulmonary toilet. cc: MD Camden Ann MD
--- NOTE | 2019-06-25 08:59 | Diag Imaging Result Doc PS360 ---
CHEST-PORTABLE - 06/25/2019 INDICATION: cough COMPARISON: 06/21/2019 FINDINGS: There is a left PICC line in good position in the SVC. There is worsening bibasilar opacification likely small to moderate pleural effusions. There is some patchy bibasilar atelectasis as well. Stable mild cardiomegaly. IMPRESSION: Worsening bibasilar opacification, most likely small to moderate pleural effusions and some mild atelectasis. Electronically signed by Chadd Castro 06/25/2019 8:57 AM
[2019-06-25] MEDS: LEVAQUIN 500 MG/D5W 500 MG/100 ML IVPB IV SCH (09:52)
[2019-06-25] MEDS: PERIDEX MT SCH ×2 (09:52→21:53)
[2019-06-25] MEDS: NS 1,000 ML IV SCH ×2 (10:04→18:47)
[2019-06-25] MEDS ORDERED: LASIX IV ONE (17:59)
[2019-06-25] MEDS ORDERED: POTASSIUM CHLORIDE 40 MEQ/SWI 40 MEQ/100 ML IVPB IV ONE (20:07)
--- NOTE | 2019-06-25 20:49 | PROGRESS NOTE ---
DATE: 06/25/2019 SUBJECTIVE: After the PICC line placed on the left side, patient is better and advancing the diet. Chest x-ray some fluid. OBJECTIVE: Is 98 degrees, pulse 95. Vitals are stable.HEENT: Within normal limits. Lungs: Some fluid in the both bases. Abdomen: Belly is soft, nontender. She is getting liquid stool from the colostomy site. Neurologic: No neurological deficits. INVESTIGATIONS: White cell count 17, hematocrit 36, platelets 201,000. Sodium 139, potassium 3.2, chloride 103, BUN 17, creatinine 0.4. Chest x-ray, some fluid. ASSESSMENT AND PLAN: Decrease IV fluids to KVO. Lasix 40. Replace the potassium. Continue IV Levaquin. DVT, GI prophylaxis. Advance the diet as per Dr. Gutierrez. Out of the bed with physical therapy, incentive spirometry, and continue present treatment. LEVEL OF DOCUMENTATION: 25 minutes. cc: Camden Francisco MD
[2019-06-26] MEDS: ULTRACET 37.5MG/325MG PO PRN (01:44)
[2019-06-26] MEDS: SYNTHROID IV SCH (06:21)
[2019-06-26] MEDS: PROTONIX IV SCH (06:21)
[2019-06-26] MEDS: LOVENOX SUBQ SCH (06:21)
--- NOTE | 2019-06-26 09:34 | Diag Imaging Result Doc PS360 ---
EXAM: CHEST-2 VIEWS 06/26/2019 HISTORY: SOB TECHNIQUE: PA and lateral chest COMMENT: There is a PICC line with its tip just above the right atrium. There is a left pleural effusion. There is opacity in the left lower lobe and possibly in the medial portion of the right lower lobe. Compared to 06/25/2019 there appears to be more fluid on the left but less on the right. IMPRESSION: Left pleural effusion and bibasilar atelectasis versus pneumonia, particularly in the left lower lobe. Electronically signed by Carl Samson 06/26/2019 9:31 AM
[2019-06-26] MEDS: OFIRMEV 1000 MG/ISOTONIC SOLN 1,000 MG/100 ML BOTTLE IV SCH ×3 (10:09→21:31)
[2019-06-26] MEDS: ULTRAM PO PRN (10:12)
[2019-06-26] MEDS: PERIDEX MT SCH ×2 (10:13→21:31)
[2019-06-26] MEDS: LEVAQUIN 500 MG/D5W 500 MG/100 ML IVPB IV SCH (10:17)
[2019-06-26 10:25] LABS: BASO% 1.5 % (0.0-0.8); EOS# 0.49 X1000 (0.0-0.7); EOS% 2.4 % (0.0-10.0); HEMATOCRIT 36.4 % (37.0-47.0); IMM GRAN# 1.37 X1000 (0.0-0.04); IMM GRAN% 6.8 % (0.0-0.5); LYMPH# 1.85 X1000 (1.2-3.4); LYMPH% 9.2 % (20.5-51.1); MCH 31.9 PG (27-31); MCV 96.8 FL (81-99); MONO# 1.06 X1000 (0.11-0.59); MONO% 5.3 % (1.7-9.3); MPV 10.1 FL (7.4-10.4); NEUT# 15.05 X1000 (1.4-6.5); NEUT% 74.8 % (42.2-75.2); PLT 257 X1000 (130-400); RBC 3.76 XMIL (4.2-5.4); RDW 14.6 % (11.5-14.5); WBC 20.12 X1000 (4.8-10.8)
[2019-06-26 11:03] LABS: AGAP 13; BUN 9 mg/dL (8-22); CALCIUM 8.2 mg/dL (8.8-10.2); CHLORIDE 98 mmol/L (98-107); COSMO 271; CREATININE 0.5 mg/dL (0.5-0.9); ESTIMATED GFR > 60; GLUCOSE 134 mg/dL (70-104); MAGNESIUM 1.9 mg/dL (1.5-2.7); POTASSIUM 2.8 mmol/L (3.5-5.1); SODIUM 135 mmol/L (136-145); TCO2 24 mmol/L (25-35)
--- NOTE | 2019-06-26 11:13 | GENERAL SURGERY PROGRESS NOTE ---
DATE: 06/26/2019 SUBJECTIVE: She feels okay. She is a little distended. Her ostomy is functioning. She has been have no vomiting. She says she is hungry. She is tearful and wants to go home. OBJECTIVE: Her white count is up to 20 today, hematocrit is 26. Her BMP is pending but her renal function is normal. Her potassium is getting better. On examination, her wound is intact. Her ostomy is pink and viable with stool in the bag. Her VALENTIN drain is serosanguineous. ASSESSMENT AND PLAN: A 64-year-old female with perforated diverticulitis. She has persistent leukocytosis. Her chest x-ray did not show an obvious pneumonia but there is some atelectasis. I am going to get a CT scan today to evaluate for intra-abdominal abscess, given her gross contamination, but based off her exam, I have a low concern for this. There is no swelling of her lower extremities. We will continue to follow her closely. cc: MD Camden Ann MD
[2019-06-26] MEDS: ROBAXIN 1,000 MG in NS 50 ML IV SCH ×2 (12:06→18:03)
[2019-06-26] MEDS ORDERED: LASIX IV ONE (12:23)
[2019-06-26] MEDS: ZOSYN 3.375 GM in NS 50 ML IV SCH ×2 (12:52→18:55)
[2019-06-26] MEDS: DILAUDID IV PRN ×2 (14:38→21:32)
[2019-06-26] MEDS: POTASSIUM CHLORIDE 60 MEQ in NS 500 ML IV SCH ×2 (14:39→21:30)
--- NOTE | 2019-06-26 14:47 | Diag Imaging Result Doc PS360 ---
EXAM: CT ABD/PELVIS W/PO AND IV CON HISTORY: leukocytosis postop evaluate for abscess TECHNIQUE: This exam was performed using automated exposure control, adjustment of mA or kV according to patient size, and/or use of iterative reconstruction technique. COMPARISON: 06/18/2019 FINDINGS: Lung bases: Bilateral breast implants. There are new moderate bilateral pleural effusions and moderate bibasilar atelectasis/consolidation. Trace pericardial effusion is unchanged. There is moderate free fluid. There is an elongated enhancing fluid collection measuring 7.4 x 1.2 cm right subphrenic versus subcapsular region. This is suspicious for abscess. There are a few perihepatic extraluminal gas foci. There is diffuse body wall edema/anasarca. There are prominent mesenteric lymph nodes. Kidneys are unremarkable. No hydronephrosis. There are midline surgical clips. There is a left lower quadrant colostomy. There are surgical clips involving the sigmoid colon. Small amount of free fluid within the pelvis. There is sigmoid diverticulosis. No evidence for obstruction. There are surgical clips right lower quadrant with a surgical drain in place. There is bowel wall thickening involving the cecum. No evidence for abscess within the pelvis. There is gas within the urinary bladder. Correlate clinically in regards to recent instrumentation or possibility of emphysematous cystitis or bladder fistula. Status post hysterectomy and cholecystectomy.. No acute bony abnormality is demonstrated. This report was discussed with Reny this patient's nurse on 06/26/2019 at 2:45 PM with read back verification. She will contact patient's surgeon. IMPRESSION: 1.Elongated perihepatic fluid collection suspicious for subphrenic or subcapsular abscess. 2.Bibasilar pulmonary consolidation and bilateral effusions. 3.Wall thickening involving the cecum consistent with residual colitis. 4.Air-fluid level within the urinary bladder. Correlate for recent instrumentation. Emphysematous cystitis or fistula is not excluded in the appropriate setting. 5.Left lower quadrant colostomy without adverse features. 6.A few residual foci of extraluminal gas are noted and may very well be postoperative. 7.No evidence for pelvic abscess with surgical drain in place. 8.Moderate free abdominal/pelvic fluid and diffuse anasarca. Electronically signed by Priscila Del Valle 06/26/2019 2:45 PM
--- NOTE | 2019-06-26 16:57 | PROGRESS NOTE ---
DATE: 06/26/2019 Level 3 documentation. SUBJECTIVE: During this time the patient's condition is a little bit deteriorated, more belly pain, more shortness of breath, and oxygen level 88% on 3 L. Chest x-ray showed fluid in the left lower lobe, atelectasis, possible pneumonia. She is not tolerating the diet very well. White cell count is going up. I have seen the patient 3 times today. I appreciate Dr. Gutierrez's efforts. OBJECTIVE: Vital signs: Temperature is 98 degrees, pulse 88. Vitals are stable. On 4 L, 94%. HEENT: Within normal limits. Lungs: Decreased breath sounds left base. Heart: Sounds are regular. Abdomen: Belly is soft, distended. VALENTIN drain was present. Fluid is coming from the colostomy site. LABS: White cell count has gone up to 20, hematocrit 36, platelets 257,000. Potassium 2.8, calcium 8.2. Chest x-ray: Left lower lobe fluid and pneumonia. CT scan of the abdomen and pelvis reported large perinephric fluid collection, questionable abscess. Bilateral effusion with left lower lobe thickening of the cecum. Residual colitis. Air- fluid levels within the bladder. ASSESSMENT AND PLAN: 1. Left lower lobe atelectasis and fluid. Discontinue fluids. Get some IV Lasix. 2. Hypokalemia. Replace the potassium. 3. Bladder scan. She is not emptying the bladder. There is no pneumaturia noted. 4. Perinephric fluid collection. VALENTIN drain was there. Probably attempt drainage, as per Dr. Gutierrez. 5. On clear liquid diet. Out of the bed. Incentive spirometry. Added on Levaquin and Zosyn. DVT and GI prophylaxis. Encourage out of the bed with physical therapy. We will follow up on the labs every day. LEVEL OF DOCUMENTATION: Thirty-five minutes. cc: Camden Francisco MD
[2019-06-27] MEDS: ZOSYN 3.375 GM in NS 50 ML IV SCH ×6 (00:24→19:37)
[2019-06-27] MEDS: ULTRAM PO PRN ×2 (00:24→14:02)
[2019-06-27] MEDS: ROBAXIN 1,000 MG in NS 50 ML IV SCH ×3 (03:44→18:48)
[2019-06-27] MEDS: OFIRMEV 1000 MG/ISOTONIC SOLN 1,000 MG/100 ML BOTTLE IV SCH ×5 (03:45→23:00)
[2019-06-27] MEDS: SYNTHROID IV SCH (06:24)
[2019-06-27] MEDS: LOVENOX SUBQ SCH (06:24)
[2019-06-27] MEDS: PROTONIX IV SCH (06:25)
[2019-06-27] MEDS: DILAUDID IV PRN (06:27)
[2019-06-27 07:58] LABS: BASO% 0.5 % (0.0-0.8); EOS# 0.44 X1000 (0.0-0.7); EOS% 2.3 % (0.0-10.0); HEMATOCRIT 33.4 % (37.0-47.0); HEMOGLOBIN 10.9 g/dL (12.0-16.0); IMM GRAN# 0.78 X1000 (0.0-0.04); IMM GRAN% 4.2 % (0.0-0.5); LYMPH% 9.1 % (20.5-51.1); MCH 32.1 PG (27-31); MCHC 32.6 g/dL (33-37); MCV 98.2 FL (81-99); MONO# 1.13 X1000 (0.11-0.59); MPV 10.3 FL (7.4-10.4); NEUT# 14.58 X1000 (1.4-6.5); NEUT% 77.9 % (42.2-75.2); PLT 268 X1000 (130-400); RDW 14.5 % (11.5-14.5); WBC 18.73 X1000 (4.8-10.8)
[2019-06-27 08:15] LABS: AGAP 10; BUN 7 mg/dL (8-22); CALCIUM 7.7 mg/dL (8.8-10.2); CHLORIDE 103 mmol/L (98-107); COSMO 271; CREATININE 0.5 mg/dL (0.5-0.9); ESTIMATED GFR > 60; GLUCOSE 87 mg/dL (70-104); POTASSIUM 3.8 mmol/L (3.5-5.1); SODIUM 137 mmol/L (136-145); TCO2 24 mmol/L (25-35)
--- NOTE | 2019-06-27 09:07 | Diag Imaging Result Doc PS360 ---
CHEST-2 VIEWS - 06/27/2019 INDICATION: SOB COMPARISON: 06/26/2019 FINDINGS: Stable left PICC line in good position. Stable small left pleural effusion with some patchy atelectasis. Stable small right pleural effusion as well. No substantial infiltrates. Heart size remains normal. IMPRESSION: No change from prior. Small bilateral pleural effusions left greater than right. Electronically signed by Chadd Castro 06/27/2019 9:04 AM
[2019-06-27] MEDS: PERIDEX MT SCH ×2 (10:22→22:00)
[2019-06-27] MEDS: LEVAQUIN 500 MG/D5W 500 MG/100 ML IVPB IV SCH (10:22)
--- NOTE | 2019-06-27 12:42 | GENERAL SURGERY PROGRESS NOTE ---
DATE: 06/27/2019 SUBJECTIVE: No fevers overnight. No tachycardia. Blood pressure has been okay. The ostomy continues to function. She is tolerating clear liquids. Remains on nasal cannula. Sats in the low-to-mid 90s either on 2 L versus room air. Incision is intact. No lower extremity edema. White count down 18, hematocrit 33. Creatinine 0.5, potassium is 3.8. ASSESSMENT AND PLAN: A 64-year-old female status post Jonathan's procedure for perforated diverticulitis. CT yesterday suggests possible abscess adjacent to the liver, not amenable to percutaneous drainage. As such, will continue antibiotics as she is clinically improving. Advance her diet to soft today. Encourage her to be out of bed. Limiting narcotic pain medication. cc: MD Camden Ann MD
[2019-06-27] MEDS: SODIUM CHLORIDE 0.9% INJ SCH (17:28)
[2019-06-27] MEDS: PHENERGAN IV PRN (17:28)
--- NOTE | 2019-06-27 18:10 | PROGRESS NOTE ---
DATE: 06/27/2019 SUBJECTIVE: The patient is slightly better emptying the bladder. OBJECTIVE: Vital Signs: She is afebrile. Vitals are stable. Respiratory: Decreased breath sounds in the left base. Heart: Sounds are regular. Gastrointestinal: Belly is soft, nontender. INVESTIGATIONS: White cell count 18.73, hematocrit 33, platelet 268,000. SMA 7 is normal. I did review the CTs with Dr. Castro. There is no substantial fluid to be drained from the outside the liver. Slowly it will reabsorb and findings were reassured. ASSESSMENT AND PLAN: Left lower lobe atelectasis with effusion. Continue on IV Lasix, incentive spirometer and continue IV Levaquin and Zosyn. Out of the bed with physical therapy. We are closely monitoring CBC and chest x-ray every other day. Continue present treatment. LEVEL OF DOCUMENTATION: 25 minutes. cc: Camden Francisco MD
[2019-06-27] MEDS ORDERED: LASIX IV ONE (18:30)
[2019-06-28] MEDS: ROBAXIN 1,000 MG in NS 50 ML IV SCH ×4 (00:48→17:49)
[2019-06-28] MEDS: ZOSYN 3.375 GM in NS 50 ML IV SCH ×4 (00:49→18:30)
[2019-06-28] MEDS: OFIRMEV 1000 MG/ISOTONIC SOLN 1,000 MG/100 ML BOTTLE IV SCH ×4 (04:21→21:09)
[2019-06-28] MEDS: DILAUDID IV PRN ×5 (04:23→20:59)
[2019-06-28 06:55] LABS: BASO# 0.06 X1000 (0.0-0.2); BASO% 0.4 % (0.0-0.8); HEMATOCRIT 33.7 % (37.0-47.0); HEMOGLOBIN 10.8 g/dL (12.0-16.0); LYMPH# 1.54 X1000 (1.2-3.4); LYMPH% 9.2 % (20.5-51.1); MCH 31.2 PG (27-31); MCV 97.4 FL (81-99); MONO# 1.23 X1000 (0.11-0.59); MONO% 7.3 % (1.7-9.3); MPV 10.2 FL (7.4-10.4); PLT 346 X1000 (130-400); RBC 3.46 XMIL (4.2-5.4); RDW 14.6 % (11.5-14.5); WBC 16.81 X1000 (4.8-10.8)
[2019-06-28] MEDS: LOVENOX SUBQ SCH (06:56)
[2019-06-28] MEDS: PROTONIX IV SCH (06:56)
[2019-06-28] MEDS: SYNTHROID IV SCH (06:56)
[2019-06-28 07:21] LABS: AGAP 12; BUN 7 mg/dL (8-22); CALCIUM 8.1 mg/dL (8.8-10.2); CHLORIDE 98 mmol/L (98-107); COSMO 267; CREATININE 0.6 mg/dL (0.5-0.9); ESTIMATED GFR > 60; GLUCOSE 111 mg/dL (70-104); POTASSIUM 3.1 mmol/L (3.5-5.1); SODIUM 134 mmol/L (136-145); TCO2 24 mmol/L (25-35)
[2019-06-28 07:29] LABS: LYMPHS 3 % (21-51); MONO 8 % (1-9); SEGS 89 % (42-75)
--- NOTE | 2019-06-28 08:20 | Diag Imaging Result Doc PS360 ---
EXAM: CHEST-2 VIEWS HISTORY: hypoxia TECHNIQUE: Two views COMPARISON: 06/27/2019 FINDINGS: There is a small left pleural effusion and a tiny right pleural effusion. There are infiltrates and atelectasis in the left lower lobe. No cardiomegaly. No pulmonary edema. No change in the left-sided PICC line. IMPRESSION: Stable chest Electronically signed by Jeffrey Kaminski 06/28/2019 8:17 AM
[2019-06-28] MEDS: PERIDEX MT SCH ×2 (09:24→21:02)
[2019-06-28] MEDS: LEVAQUIN 500 MG/D5W 500 MG/100 ML IVPB IV SCH (09:27)
--- NOTE | 2019-06-28 12:48 | GENERAL SURGERY PROGRESS NOTE ---
DATE: 06/28/2019 SUBJECTIVE: Feels better. She is ambulating. Ostomy is functioning. She is tolerating a diet. No fevers. No tachycardia. Her white count down to 16, hematocrit 33. Potassium low at 3.1, creatinine 0.6. She is being diuresed. ASSESSMENT AND PLAN: A 64-year-old female, status post Jonathan's procedure. She is going to need more longer-term IV antibiotics for the intra-abdominal abscess that is not amenable to percutaneous drainage. She has a PICC line in place. Otherwise, she is encouraged to be out of bed and ambulating. Dr. Pearson is following my patients for the weekend Dr. Francisco is managing her volume status and electrolytes. cc: MD Camden Ann MD
[2019-06-28] MEDS: POTASSIUM CHLORIDE 60 MEQ in NS 500 ML IV SCH ×2 (13:10→18:59)
--- NOTE | 2019-06-28 15:34 | PROGRESS NOTE ---
DATE: 06/28/2019 SUBJECTIVE: The patient is slowly improving and decreased shortness of breath. Oxygen is better. PHYSICAL EXAMINATION: Temperature 98 degrees. Vitals are stable. Decreased breath sounds left base. Belly is soft. Lower abdominal wound is slightly decreased. INVESTIGATIONS: CBC: White cell count 16, hematocrit 33, and platelets 346,000. SMA 7, sodium 134, and potassium 3.1. Chest x-ray improving the pleural effusion on the left side. ASSESSMENT AND PLAN: 1. Left pleural effusion, atelectasis, incentive spirometry. 2. Hypokalemia. Replace the potassium. PICC line on the left side. 3. DVT and GI prophylaxis out of the bed. 4. Continue IV Synthroid, IV antibiotics with Zosyn and Levaquin. He still has a VALENTIN drain. Colostomy is working. 5. I appreciate Dr. Gutierrez's follow up. LEVEL OF DOCUMENTATION: 27 minutes. cc: Camden Francisco MD
[2019-06-28] MEDS: NS 1,000 ML IV SCH ×3 (18:58→23:10)
[2019-06-28] MEDS: ULTRAM PO PRN (23:25)
[2019-06-29] MEDS: ZOSYN 3.375 GM in NS 50 ML IV SCH ×4 (00:04→17:30)
[2019-06-29] MEDS: ROBAXIN 1,000 MG in NS 50 ML IV SCH ×3 (02:04→17:53)
[2019-06-29] MEDS: SODIUM CHLORIDE 0.9% INJ SCH ×2 (02:13→06:57)
[2019-06-29] MEDS: PHENERGAN IV PRN (02:13)
[2019-06-29] MEDS: DILAUDID IV PRN ×5 (02:13→21:17)
[2019-06-29] MEDS: OFIRMEV 1000 MG/ISOTONIC SOLN 1,000 MG/100 ML BOTTLE IV SCH ×4 (04:53→21:49)
--- NOTE | 2019-06-29 06:21 | GENERAL SURGERY PROGRESS NOTE ---
DATE: 06/29/2019 SUBJECTIVE: The patient seems to be doing okay. Her main issue right now is that she is having frequency and incontinence with voiding. She is having ostomy output. She is apparently tolerating her diet. OBJECTIVE: Vital Signs: The patient is currently afebrile. Her vital signs are stable. General: No acute distress. Cardiovascular: Regular rate and rhythm. Lungs: Grossly clear. Abdomen: Soft. Ostomy in place with appliance in place, with some stool noted in the appliance. LABORATORY: None this morning as of yet. ASSESSMENT AND PLAN: A 64-year-old female status post Jonathan's procedure for perforated diverticulitis. Postoperative state: At this time the patient's main issue is her urinary complaints. We will get a UA on her. She does have some inflammatory changes around her bladder on the CT scan, so this could be just kind of reactive to the inflammation in her abdomen but regardless we will get one. She is on Levaquin and Zosyn, which should probably treat most possible species involved in a urinary tract infection in this patient. Otherwise continue to monitor. She is going to be on IV antibiotics given her perihepatic abscess. We will follow up the UA. cc: MD Camden Trimble MD
[2019-06-29] MEDS: PROTONIX IV SCH (06:56)
[2019-06-29] MEDS: ULTRAM PO PRN (06:57)
[2019-06-29] MEDS: SYNTHROID IV SCH (06:57)
[2019-06-29] MEDS: LOVENOX SUBQ SCH (06:57)
[2019-06-29 07:28] LABS: URINE SOURCE CLEAN CATCH
[2019-06-29 07:32] LABS: BILIRUBIN URINE NEGATIVE (NEGATIVE); BLOOD URINE NEGATIVE (NEGATIVE); COLOR YELLOW; GLUCOSE URINE NEGATIVE (NEGATIVE); KETONE URINE TRACE mg/dL (NEGATIVE); LEUKOCYTES URINE NEGATIVE (NEGATIVE); NITRITE URINE NEGATIVE (NEGATIVE); PROTEIN URINE NEGATIVE (NEGATIVE); SP GRAVITY URINE 1.015; TURBIDITY URINE CLEAR (CLEAR); UROBILINOGEN URINE NORMAL (NORMAL)
[2019-06-29 07:34] LABS: UR EPITHELIAL CELLS <10 /HPF (<10); URINE BACTERIA NEGATIVE /HPF; URINE RBC <10 /HPF (<10); URINE WBC <10 /HPF (<10)
[2019-06-29] MEDS: PERIDEX MT SCH ×2 (08:32→21:49)
[2019-06-29] MEDS ORDERED: ZOSYN ONE ×2 (09:45→09:46)
[2019-06-29] MEDS: LEVAQUIN 500 MG/D5W 500 MG/100 ML IVPB IV SCH (09:56)
[2019-06-29] MEDS ORDERED: LASIX IV ONE (10:54)
--- NOTE | 2019-06-29 12:39 | PROGRESS NOTE ---
DATE: 06/29/2019 SUBJECTIVE: The patient is slowly improving and no labs were drawn. Some jeyson were loose, getting some serous drain, intermittent belly pain. Off oxygen. PHYSICAL EXAMINATION: Vital signs: Temperature is 98 degrees, pulse 19. Vitals are stable. Lungs: Decreased breath sounds left base. Heart: Sounds are regular. Abdomen: Belly is soft, nontender. VALENTIN drain was removed. Colostomy is working. ASSESSMENT AND PLAN: 1. Postoperative for sigmoid perforation, status post colostomy, slight wound dehiscence. 2. Atelectasis with effusion on the left lung. 3. Check the labs in the morning and chest x-ray. Lasix 1 more dose. DVT and GI prophylaxis. IV Synthroid. Continue local wound care on the belly and encouraged to ambulate. LEVEL OF DOCUMENTATION: 25 minutes. cc: Camden Francisco MD
[2019-06-29] MEDS: NS 1,000 ML IV SCH (18:14)
[2019-06-30] MEDS: PHENERGAN IV PRN (00:39)
[2019-06-30] MEDS: DILAUDID IV PRN ×7 (00:40→20:55)
[2019-06-30] MEDS: ZOSYN 3.375 GM in NS 50 ML IV SCH ×4 (00:54→17:38)
[2019-06-30] MEDS: ROBAXIN 1,000 MG in NS 50 ML IV SCH ×3 (02:54→18:56)
[2019-06-30] MEDS: OFIRMEV 1000 MG/ISOTONIC SOLN 1,000 MG/100 ML BOTTLE IV SCH ×4 (04:00→21:10)
[2019-06-30] MEDS: SODIUM CHLORIDE 0.9% INJ SCH (05:39)
[2019-06-30] MEDS: SYNTHROID IV SCH ×2 (05:39→06:00)
[2019-06-30] MEDS: LOVENOX SUBQ SCH ×2 (05:39→06:00)
[2019-06-30] MEDS: PROTONIX IV SCH ×2 (05:39→06:00)
--- NOTE | 2019-06-30 06:06 | GENERAL SURGERY PROGRESS NOTE ---
DATE: 06/30/2019 SUBJECTIVE: The patient said she had a little bit better overnight last night. Her urinalysis was relatively normal. She is having ostomy output. Her VALENTIN drains in place and little on the sanguinous side of serosanguineous. OBJECTIVE: Vital Signs: Patient is currently afebrile. Her vital signs are stable. General: No acute distress. Resting. Cardiovascular: Regular rate and rhythm. Lungs: Grossly clear. Abdomen: Soft, appropriately tender VALENTIN drain in place with some sanguinous site of serosanguineous drainage. Ostomy in place and functioning. Incision seems to be healing. LABORATORY: None this morning as of yet. Urinalysis reviewed. ASSESSMENT AND PLAN: A 62-year-old female status post Jonathan's procedure for perforated diverticulitis. Postoperative state at this time, she seems to be doing okay. She is having some vague abdominal pain, if this persists may need to consider repeating the CT scan of her abdomen. The last one was done on the 06/25. She did have a fluid collection there that could not be drained, so may need to reassess that, but otherwise keep her on her antibiotics for now and monitor her closely. cc: MD Camden Trimble MD
[2019-06-30 07:00] LABS: BASO# 0.04 X1000 (0.0-0.2); BASO% 0.2 % (0.0-0.8); HEMATOCRIT 33.3 % (37.0-47.0); HEMOGLOBIN 10.9 g/dL (12.0-16.0); LYMPH% 10.1 % (20.5-51.1); MCH 32.2 PG (27-31); MCHC 32.7 g/dL (33-37); MCV 98.5 FL (81-99); MONO# 1.82 X1000 (0.11-0.59); MONO% 10.8 % (1.7-9.3); MPV 9.9 FL (7.4-10.4); NEUT# 12.75 X1000 (1.4-6.5); NEUT% 75.9 % (42.2-75.2); PLT 451 X1000 (130-400); RBC 3.38 XMIL (4.2-5.4); RDW 14.6 % (11.5-14.5); WBC 16.81 X1000 (4.8-10.8)
[2019-06-30 07:16] LABS: AGAP 17; BUN 7 mg/dL (8-22); CALCIUM 8.1 mg/dL (8.8-10.2); CHLORIDE 102 mmol/L (98-107); COSMO 277; CREATININE 0.7 mg/dL (0.5-0.9); ESTIMATED GFR > 60; GLUCOSE 98 mg/dL (70-104); POTASSIUM 3.6 mmol/L (3.5-5.1); SODIUM 140 mmol/L (136-145); TCO2 21 mmol/L (25-35)
[2019-06-30 07:18] LABS: BANDS 2 % (0-1); HYPOCHROM 1+; LYMPHS 10 % (21-51); MONO 8 % (1-9); SEGS 78 % (42-75)
--- NOTE | 2019-06-30 08:06 | Diag Imaging Result Doc PS360 ---
EXAM: CHEST-2 VIEWS INDICATION: hypoxia TECHNIQUE: 2 views COMPARISON: 06/28/2019 FINDINGS: There is a stable left PICC line. There is a stable small to moderate-sized left pleural effusion with adjacent atelectasis and/or infiltrate. No new consolidation is identified. Cardiac silhouette is stable. IMPRESSION: Stable chest. Electronically signed by Wiliam Bruce 06/30/2019 8:03 AM
[2019-06-30] MEDS: PERIDEX MT SCH ×2 (08:18→20:55)
[2019-06-30] MEDS: LEVAQUIN 500 MG/D5W 500 MG/100 ML IVPB IV SCH (08:18)
[2019-06-30] MEDS ORDERED: LASIX IV ONE (12:01)
--- NOTE | 2019-06-30 12:57 | PROGRESS NOTE ---
DATE: 06/30/2019 SUBJECTIVE: The patient is getting better. X-rays show left pleural effusion. Results discussed with the patient. OBJECTIVE: Vital Signs: Low-grade fever. Vitals are stable. Lungs: Decreased breath sounds on the left side. Heart: Sounds are regular. Abdomen: Belly is soft and nontender. Extremities: No obvious deficits. INVESTIGATIONS: White cell count 16, hematocrit 33, platelets and 451,000. SMA 7 is normal. ASSESSMENT AND PLAN: 1. Left pleural effusion. 2. Status post colostomy for sigmoid diverticulitis. 3. Hypothyroidism. 4. History of breast cancer. PLAN: Plan of care is out of the bed. Incentive spirometry. Continue local wound care for the wound dehiscence in the lower abdomen. Continue IV antibiotics. Lasix was given. Continue to monitor. LEVEL OF DOCUMENTATION: 25 minutes. cc: Camden Francisco MD
[2019-07-01] MEDS: DILAUDID IV PRN ×7 (01:04→21:26)
[2019-07-01] MEDS: ZOSYN 3.375 GM in NS 50 ML IV SCH ×5 (01:29→22:46)
[2019-07-01] MEDS: ROBAXIN 1,000 MG in NS 50 ML IV SCH ×3 (02:30→18:00)
[2019-07-01] MEDS: OFIRMEV 1000 MG/ISOTONIC SOLN 1,000 MG/100 ML BOTTLE IV SCH ×4 (05:08→21:25)
[2019-07-01] MEDS: NS 1,000 ML IV SCH ×2 (05:09→18:01)
--- NOTE | 2019-07-01 06:33 | GENERAL SURGERY PROGRESS NOTE ---
DATE: 07/01/2019 SUBJECTIVE: The patient is reporting abdominal pain. OBJECTIVE: Vital Signs: The patient is currently afebrile. Her vital signs are stable. General Examination: Resting. Cardiovascular: Regular rate and rhythm. Lungs: Grossly clear. Abdomen: Soft. Some tenderness. Ostomy appears to be viable. VALENTIN drain in place with serosanguineous output, but only minimal. Laboratory: Currently pending. Laboratory from yesterday showed a white blood cell count that is relatively stable at 16. ASSESSMENT/PLAN: A 62-year-old female status post Jonathan's procedure for perforated diverticulitis. Postoperative state. At this time, I will repeat her CT scan of her abdomen with oral and intravenous contrast. She is having more pain. She did have a fluid collection that could not be drained, so we will see if this has changed or if there is any increase in the intra-abdominal fluid. She is on antibiotics. cc: MD Camden Trimble MD
[2019-07-01] MEDS: SODIUM CHLORIDE 0.9% INJ SCH (06:53)
[2019-07-01] MEDS: SYNTHROID IV SCH (06:53)
[2019-07-01] MEDS: LOVENOX SUBQ SCH (06:54)
[2019-07-01] MEDS: PROTONIX IV SCH (06:54)
[2019-07-01] MEDS: PERIDEX MT SCH ×2 (08:00→21:24)
[2019-07-01] MEDS: PHENERGAN IV PRN ×3 (08:19→22:45)
--- NOTE | 2019-07-01 09:41 | Diag Imaging Result Doc PS360 ---
CT ABD/PELVIS W/PO AND IV CON - 07/01/2019 INDICATION: f/u abscess and new abdominal pain COMPARISON: 06/26/2019 FINDINGS: There is a trace right and moderate left pleural effusion. The left lower lobe is completely collapsed. There is some microatelectasis in the right lung base. There is a small to moderate, increasing pericardial effusion. There has been significant decrease in the small amount of perihepatic contained fluid. There is some stable perisplenic trace fluid as well. No new or increasing fluid collections. Abdominal organs are otherwise normal. No bowel obstruction. No peritoneal free air. Stable left lower quadrant diverting colostomy. Stable surgical drain in the pelvis. Tiny drop of air in the urinary bladder area rectum appears normal. Bones are intact. IMPRESSION: Overall minor improvement from prior. Moderate left pleural effusion with dense collapse of the left lower lobe. Slight improvement in the tiny perihepatic fluid collection. No new abnormality. This exam was performed using automated exposure control, adjustment of mA or kV according to patient size, and/or use of iterative reconstruction technique Electronically signed by Chadd Castro 07/01/2019 9:39 AM
--- NOTE | 2019-07-01 17:42 | PROGRESS NOTE ---
DATE: 07/01/2019 SUBJECTIVE: The patient continues to have abdominal pain. Her drain is up from the lower part of the incision. Colostomy is working. VALENTIN drain still intact. Had a PICC line on the left side. Segura was not working. She still has some fluid in the left lung. Refused to take Lasix. PHYSICAL EXAMINATION: Temperature is 98 degrees. Vitals are stable. Decreased breath sounds in the left base. Belly is soft, nontender. INVESTIGATIONS: CT scan findings discussed with the patient. No labs were drawn. ASSESSMENT AND PLAN: 1. Persistent left pleural effusion with atelectasis. Lasix was given. 2. Peripherally inserted central catheter line on the left side. 3. Out of the bed with physical therapy, incentive spirometry. 4. Hypothyroidism, on intravenous Synthroid. 5. Deep venous thrombosis and gastrointestinal prophylaxis. 6. CT findings were reassuring. Continue local wound care. Out of the bed with physical therapy. LEVEL OF DOCUMENTATION: 25 minutes. cc: Camden Francisco MD
[2019-07-02] MEDS: OFIRMEV 1000 MG/ISOTONIC SOLN 1,000 MG/100 ML BOTTLE IV SCH ×5 (03:00→21:26)
[2019-07-02] MEDS: ROBAXIN 1,000 MG in NS 50 ML IV SCH ×3 (03:00→17:19)
[2019-07-02] MEDS: DILAUDID IV PRN ×5 (03:28→20:34)
[2019-07-02] MEDS: PROTONIX IV SCH (06:20)
[2019-07-02] MEDS: SYNTHROID IV SCH (06:20)
[2019-07-02] MEDS: LOVENOX SUBQ SCH (06:20)
[2019-07-02] MEDS: ZOSYN 3.375 GM in NS 50 ML IV SCH ×4 (06:21→17:41)
[2019-07-02] MEDS ORDERED: LASIX IV ONE (08:33)
[2019-07-02] MEDS: PERIDEX MT SCH ×2 (09:06→20:35)
--- NOTE | 2019-07-02 17:36 | GENERAL SURGERY PROGRESS NOTE ---
DATE: 07/02/2019 SUBJECTIVE: Feels okay. Pain is better. Ostomy is functioning. No nausea, vomiting. OBJECTIVE: Vital Signs: No fevers. No tachycardia. Abdomen: Soft. Incision is intact. LABORATORY DATA: I reviewed her labs. She has not had any new today, and I have reviewed her CT scan from the weekend. ASSESSMENT AND PLAN: This is a 64-year-old female who is status post Jonathan's procedure. She is doing okay. She does have some small intra-abdominal abscess that will need more longer-term IV antibiotics. She already has a PICC line. She has home health arranged for her ostomy, and we can arrange IV antibiotics via home health for another couple of weeks. We will continue to follow along. Otherwise, I think she is progressing well. cc: MD Camden Ann MD
--- NOTE | 2019-07-02 18:29 | PROGRESS NOTE ---
DATE: 07/02/2019 SUBJECTIVE: The patient is getting better, no complaints, and CT findings discussed. She has a lot of fluid in the left base with atelectasis, and I showed the pictures to the patient at bedside along with the nurses. OBJECTIVE: Vital Signs: Temperature is 98 degrees. Vitals are stable. HEENT Exam: Within normal limits. Neck: Supple. Lungs: Decreased breath sounds left base. Abdomen: Serous drainage noted in the lower part of the abdomen. Neurological: No obvious deficits. LABORATORY DATA: None reported. ASSESSMENT AND PLAN: 1. Left lower lobe fluid atelectasis. Incentive spirometry. Lasix. Out of the bed with physical therapy. 2. Peripherally inserted central catheter line on the left side. 3. I am going to stop the fluids completely, and I will check the chest x-ray and labs in the morning, and VALENTIN drain still there. 4. Hypothyroidism on IV Synthroid. 5. Continue IV antibiotics, and we will follow up. LEVEL OF DOCUMENTATION: 25 minutes. cc: Camden Francisco MD
[2019-07-02] MEDS: PHENERGAN IV PRN (22:15)
[2019-07-03] MEDS: ZOSYN 3.375 GM in NS 50 ML IV SCH ×5 (00:06→18:30)
[2019-07-03] MEDS: DILAUDID IV PRN ×6 (00:06→22:27)
[2019-07-03] MEDS: ROBAXIN 1,000 MG in NS 50 ML IV SCH ×3 (02:22→18:39)
[2019-07-03] MEDS: OFIRMEV 1000 MG/ISOTONIC SOLN 1,000 MG/100 ML BOTTLE IV SCH ×5 (04:04→22:33)
[2019-07-03] MEDS: SYNTHROID IV SCH ×2 (04:57→07:18)
[2019-07-03] MEDS: SODIUM CHLORIDE 0.9% INJ SCH (04:58)
[2019-07-03] MEDS: LOVENOX SUBQ SCH ×2 (04:58→07:18)
[2019-07-03] MEDS: PROTONIX IV SCH ×2 (04:58→07:18)
[2019-07-03 06:55] LABS: BASO# 0.15 X1000 (0.0-0.2); BASO% 1.2 % (0.0-0.8); HEMATOCRIT 32.9 % (37.0-47.0); HEMOGLOBIN 10.4 g/dL (12.0-16.0); LYMPH# 1.73 X1000 (1.2-3.4); MCH 31.4 PG (27-31); MCHC 31.6 g/dL (33-37); MCV 99.4 FL (81-99); MONO# 1.44 X1000 (0.11-0.59); MONO% 11.7 % (1.7-9.3); MPV 9.3 FL (7.4-10.4); PLT 640 X1000 (130-400); RBC 3.31 XMIL (4.2-5.4); RDW 14.8 % (11.5-14.5); WBC 12.35 X1000 (4.8-10.8)
[2019-07-03 07:08] LABS: AGAP 14; BUN 10 mg/dL (8-22); CALCIUM 8.9 mg/dL (8.8-10.2); CHLORIDE 103 mmol/L (98-107); COSMO 276; CREATININE 0.6 mg/dL (0.5-0.9); ESTIMATED GFR > 60; GLUCOSE 146 mg/dL (70-104); POTASSIUM 3.8 mmol/L (3.5-5.1); SODIUM 137 mmol/L (136-145); TCO2 20 mmol/L (25-35)
--- NOTE | 2019-07-03 07:17 | Diag Imaging Result Doc PS360 ---
CHEST-PORTABLE - 07/03/2019 INDICATION: fluid to left lower lung COMPARISON: 06/30/2019 FINDINGS: Stable left PICC line in good position. Stable consolidation of the left lung base. No new infiltrates or abnormalities. IMPRESSION: Stable opacification of the left lower lobe, indeterminate. Likely a combination of pleural effusion and collapse left lower lobe as seen on the CT from 07/01/2019. Electronically signed by Chadd Castro 07/03/2019 7:15 AM
[2019-07-03] MEDS: PERIDEX MT SCH ×2 (08:21→20:25)
[2019-07-03] MEDS ORDERED: LASIX IV ONE (08:29)
[2019-07-03] MEDS ORDERED: ZOSYN ONE (09:34)
--- NOTE | 2019-07-03 14:34 | EKG Report ---
Test Performed on : 07/03/2019 2:25:37 PM Test Reason : chest pain Blood Pressure : / mmHG Vent. Rate : 077 BPM Atrial Rate : 077 BPM P-R Int : 160 ms QRS Dur : 078 ms QT Int : 400 ms P-R-T Axes : 037 024 029 degrees QTc Int : 452 ms Normal sinus rhythm. Low voltage QRS Nonspecific T wave abnormality Abnormal ECG When compared with ECG of 30-OCT-2017 13:16, Nonspecific T wave abnormality now evident in Anterior leads Confirmed by Crystal SHERWOOD, Valeriy Koroma ([id number]) on 07/05/2019 9:10:33 AM
[2019-07-03] MEDS: ULTRAM PO PRN ×2 (15:19→20:25)
--- NOTE | 2019-07-03 17:12 | GENERAL SURGERY PROGRESS NOTE ---
DATE: 07/03/2019 SUBJECTIVE: Ostomy is functioning. She has tolerated a diet. She is having some spasmodic type pain in the left upper quadrant. No fevers. No tachycardia. OBJECTIVE: Vital signs: Blood pressure 130/67, oxygen saturation low-to-mid 90s on room air. General: She is alert. Abdomen: Soft. There is some minimal serous drainage from her midline wound. Ostomy pink, viable. VALENTIN drain serosanguineous. LABORATORY: I reviewed her labs. White count down to 12, hematocrit 32. Creatinine 0.6. She is on nutritional supplementation, Lovenox, Dilaudid for pain, and Zosyn. ASSESSMENT AND PLAN: A 62-year-old female status post Jonathan's procedure. She is doing okay. I have encouraged her to be out of bed and ambulate. I suspect most of this muscle spasm is related to immobility. I think she has adequate pain control after reviewing of her medicines. Otherwise, we will continue her Zosyn. She will need more long-term Zosyn given the small intra- abdominal abscesses that she developed. We will plan on taking her drain out tomorrow. Otherwise, I think she is progressing well. cc: MD Camden Ann MD
--- NOTE | 2019-07-03 18:43 | PROGRESS NOTE ---
DATE: 07/03/2019 SUBJECTIVE: The patient looks better and still oozing from the abdominal wound. VALENTIN drain still there. Chest x-ray still has some fluid and complains of some chest pain. PHYSICAL EXAMINATION: Vital Signs: Temperature is 98 degrees. Vitals are stable, 93% on room air. Chest: Decreased breath sounds on the left side. Abdomen: Belly is soft and oozing. LABORATORY DATA: CBC: White cell count 12, hematocrit 32, platelets 640,000. Sodium 137, potassium 3.8, BUN 10, creatinine 0.6. EKG normal sinus, nothing acute. ASSESSMENT AND PLAN: 1. Chest pain. EKG cardiac enzymes were negative. 2. Persistent left pleural effusion. Lasix 40 mg incentive spirometry. 3. Continue IV antibiotics. PICC line on the left side. 4. DVT GI prophylaxis. 5. Hypothyroidism on Synthroid. Continue present treatment. LEVEL OF DOCUMENTATION: 25 minutes. cc: Camden Francisco MD
[2019-07-04] MEDS: ZOSYN 3.375 GM in NS 50 ML IV SCH ×6 (00:10→22:21)
[2019-07-04] MEDS: ROBAXIN 1,000 MG in NS 50 ML IV SCH ×3 (01:25→17:51)
[2019-07-04] MEDS: ULTRAM PO PRN (02:43)
[2019-07-04] MEDS: OFIRMEV 1000 MG/ISOTONIC SOLN 1,000 MG/100 ML BOTTLE IV SCH ×4 (03:55→22:21)
[2019-07-04] MEDS: SYNTHROID IV SCH ×2 (04:47→06:47)
[2019-07-04] MEDS: SODIUM CHLORIDE 0.9% INJ SCH (04:48)
[2019-07-04] MEDS: PROTONIX IV SCH ×2 (04:48→06:48)
[2019-07-04] MEDS: DILAUDID IV PRN ×6 (04:49→22:22)
[2019-07-04] MEDS: LOVENOX SUBQ SCH ×2 (04:49→06:47)
[2019-07-04] MEDS: PHENERGAN IV PRN ×3 (10:18→22:22)
[2019-07-04] MEDS: PERIDEX MT SCH ×2 (10:18→22:21)
--- NOTE | 2019-07-04 12:49 | GENERAL SURGERY PROGRESS NOTE ---
DATE: 07/04/2019 SUBJECTIVE: She is still having some occasional left upper quadrant abdominal spasmodic-type pain. Ostomy is functioning. She is tolerating a diet. Maxi-Jimenez drain serosanguineous, I removed that today. Her incision is intact. Minimal fat necrosis draining from the periumbilical wound. No new labs this morning. ASSESSMENT AND PLAN: A 64-year-old female status post Jonathan's procedure. She seems to be improving. She will need long-term IV antibiotics given the small intraabdominal abscesses. Otherwise, I think she is improving. Zarina has seen her with regards to ostomy education. We will continue with physical therapy and pulmonary toileting. cc: MD Camden Ann MD
--- NOTE | 2019-07-04 18:26 | PROGRESS NOTE ---
DATE: 07/04/2019 SUBJECTIVE: The patient has occasionally some left upper quadrant pain. VALENTIN drain still serosanguineous oozing noted from the lower part of the periumbilical wound. I appreciated Dr. Gutierrez's consult report. PHYSICAL EXAMINATION: Vital Signs: Temperature is 98 degrees. Vitals are stable. Respiratory: Decreased breath sounds left base. Abdomen: Belly is soft, nontender. VALENTIN drain was present. INVESTIGATIONS: No investigations were done. ASSESSMENT AND PLAN: 1. Peripherally inserted central catheter line on the left side. 2. Outpatient intravenous antibiotics with a PICC line. 3. Deep vein thrombosis and gastrointestinal prophylaxis. Incentive spirometry. 4. Will continue the intravenous antibiotics with Levaquin. 5. We will speak to the social media specialist if she goes home, we will try to arrange outpatient antibiotics. 6. Out of the bed with Physical Therapy and will get a blood workup in the morning, CBC, SMA 7, and chest x-ray. LEVEL OF DOCUMENTATION: 25 minutes. cc: Camden Francisco MD
[2019-07-05] MEDS: ZOSYN 3.375 GM in NS 50 ML IV SCH ×4 (02:30→20:24)
[2019-07-05] MEDS: OFIRMEV 1000 MG/ISOTONIC SOLN 1,000 MG/100 ML BOTTLE IV SCH ×2 (03:19→13:07)
[2019-07-05] MEDS: ROBAXIN 1,000 MG in NS 50 ML IV SCH ×3 (03:20→17:50)
[2019-07-05] MEDS: SODIUM CHLORIDE 0.9% INJ SCH (06:03)
[2019-07-05] MEDS: SYNTHROID IV SCH (06:03)
[2019-07-05] MEDS: PROTONIX IV SCH (06:03)
[2019-07-05] MEDS: LOVENOX SUBQ SCH (06:04)
[2019-07-05] MEDS: DILAUDID IV PRN ×3 (06:04→13:04)
[2019-07-05 07:01] LABS: HEMATOCRIT 33.7 % (37.0-47.0); HEMOGLOBIN 10.8 g/dL (12.0-16.0); MCH 32.3 PG (27-31); MCV 100.9 FL (81-99); MPV 8.8 FL (7.4-10.4); RBC 3.34 XMIL (4.2-5.4); RDW 14.9 % (11.5-14.5); WBC 10.37 X1000 (4.8-10.8)
[2019-07-05 07:27] LABS: AGAP 10; BUN 10 mg/dL (8-22); CALCIUM 9.3 mg/dL (8.8-10.2); CHLORIDE 105 mmol/L (98-107); COSMO 274; CREATININE 0.6 mg/dL (0.5-0.9); ESTIMATED GFR > 60; GLUCOSE 120 mg/dL (70-104); POTASSIUM 4.2 mmol/L (3.5-5.1); SODIUM 137 mmol/L (136-145); TCO2 22 mmol/L (25-35)
--- NOTE | 2019-07-05 07:35 | Diag Imaging Result Doc PS360 ---
EXAM: CHEST-2 VIEWS HISTORY: hypoxia TECHNIQUE: Two views COMPARISON: 07/03/2019 FINDINGS: There is a moderate-sized left pleural effusion similar to the prior exam. There is left lower lobe atelectasis and possibly underlying infiltrates. This is also similar to the prior study. Trace right pleural fluid. No cardiomegaly. No pulmonary edema. The left-sided PICC line is in good position. IMPRESSION: Stable chest Electronically signed by Jeffrey Kaminski 07/05/2019 7:33 AM
[2019-07-05] MEDS: PHENERGAN IV PRN ×2 (08:37→17:37)
[2019-07-05] MEDS: PERIDEX MT SCH ×2 (08:37→22:56)
--- NOTE | 2019-07-05 12:36 | Diag Imaging Result Doc PS360 ---
CHEST-2 VIEWS - 07/05/2019 12:28 PM INDICATION: POST THORA COMPARISON: 7:25 AM FINDINGS: There has been significant decrease in the left basilar pleural effusion. There is no pneumothorax. IMPRESSION: No complication. Electronically signed by Chadd Castro 07/05/2019 12:33 PM
--- NOTE | 2019-07-05 12:53 | Diag Imaging Result Doc PS360 ---
US THORACENTESIS W/IMAGE GUIDE - 07/05/2019 INDICATION: Left pleural effusion TECHNIQUE: The risks and benefits of the procedure were discussed with the patient. All questions were answered. Written and verbal informed consent was obtained. Overlying skin was prepped and draped in sterile fashion. Anesthesia was achieved with injection of 10 cc of 1% lidocaine. COMPARISON: Chest x-ray 7:23 AM FINDINGS: Ultrasound scanning demonstrated a moderate left pleural effusion. 700 mL was successfully drained. IMPRESSION: 1. Successful left thoracentesis with no complication. 2. The patient exhibited extreme anxiety and cried throughout the procedure. If this procedure is performed again in the future, then anxiolysis or light sedation will be required beforehand. Electronically signed by Chadd Castro 07/05/2019 12:51 PM
[2019-07-05 16:02] LABS: AMYLASE BODY FLUID 72 U/L; LDH BODY FLUID 396 U/L; TOTAL PROT BODY FLUID 5.1 g/dL
[2019-07-05 16:24] LABS: BODY FLUID SOURCE PLEURAL FLUID; WBC BF 995 /cumm
[2019-07-05 17:27] LABS: MONOS 54 %; POLYS 46 %
[2019-07-05] MEDS: PERCOCET-10 PO PRN ×2 (17:37→23:27)
--- NOTE | 2019-07-05 17:48 | GENERAL SURGERY PROGRESS NOTE ---
DATE: 07/05/2019 SUBJECTIVE: No fevers. No tachycardia. Pain is better with Robaxin. OBJECTIVE: Her abdomen is soft. Incision is intact. Ostomy is pink, viable. White count is 10, hematocrit is 33, creatinine 0.6. ASSESSMENT AND PLAN: This is a 64-year-old female status post Jonathan procedure. She is doing well. She is on Zosyn. We plan on sending her home on this. She is on prophylactic Lovenox. I will stop her Ofirmev and order her Percocet for pain as well as continue the Robaxin. I suspect she can go home in the next 48 to 72 hours whenever her antibiotics are arranged. Dr. Pitts will follow the patient over the weekend. cc: MD Camden Ann MD
--- NOTE | 2019-07-05 18:38 | PROGRESS NOTE ---
DATE: 07/05/2019 SUBJECTIVE: The patient continues to have pleural effusion on the left side. Continues to have drainage from the lower abdominal incision. PICC line was placed. VALENTIN drain was removed. OBJECTIVE: Temperature is 98 degrees. Vitals are stable. Decreased breath sounds on the left side. Chest x-ray: Left pleural effusion worsening. CBC: White cell count 10, hematocrit 33, platelets 701,000. SMA 7 was normal. ASSESSMENT AND PLAN: 1. Postoperative sigmoid colectomy followed by colostomy with Jonathan pouch. 2. Hypothyroidism. 3. History of breast cancer. 4. Recent shingles. 5. Persistent pleural effusion on the left side. 6. Wound infection. PLAN OF CARE: 1. Continue IV Zosyn. 2. Thoracentesis, left. Pleural fluid 700 mL was done. 3. Repeat a chest x-ray in the morning. 4. DVT and GI prophylaxis as per order sheet. 5. Continue IV Synthroid for hypothyroidism. 6. We will hold the discharge. 7. Physical therapy out of the bed with incentive spirometry. 8. We will continue to monitor over the weekend, and we will assess the disposition on Monday. LEVEL OF DOCUMENTATION: 25 minutes. cc: Camden Francisco MD
[2019-07-06] MEDS: ROBAXIN 1,000 MG in NS 50 ML IV SCH ×3 (02:51→18:08)
[2019-07-06] MEDS: PERCOCET-10 PO PRN ×5 (03:53→21:49)
[2019-07-06] MEDS: ZOSYN 3.375 GM in NS 50 ML IV SCH ×5 (04:19→18:41)
[2019-07-06] MEDS: PROTONIX IV SCH ×2 (05:49→07:13)
[2019-07-06] MEDS: SYNTHROID IV SCH ×2 (05:49→07:12)
[2019-07-06] MEDS: LOVENOX SUBQ SCH ×2 (05:50→07:12)
[2019-07-06] MEDS: SODIUM CHLORIDE 0.9% INJ SCH (05:50)
[2019-07-06] MEDS: PERIDEX MT SCH ×3 (08:37→21:29)
--- NOTE | 2019-07-06 10:57 | GENERAL SURGERY PROGRESS NOTE ---
DATE: 07/06/2019 SUBJECTIVE: She is apparently postop a Jonathan's procedure for a perforated diverticulum. She underwent the procedure on the 20 of June. OBJECTIVE: Currently, she is afebrile with stable hemodynamics. She is tolerating p.o. intake. Her white count is 10,400 yesterday. She continues on antibiotics and will be discharged home on antibiotics. I have no new recommendations. cc: MD Camden Cline MD
--- NOTE | 2019-07-06 10:58 | Diag Imaging Result Doc PS360 ---
CHEST-2 VIEWS - 07/06/2019 INDICATION: plureal effusion COMPARISON: 07/05/2019 FINDINGS: Stable left PICC line in good position. Stable trace left pleural effusion. Stable left basilar and perihilar infiltrate. IMPRESSION: No change from prior. Electronically signed by Chadd Castro 07/06/2019 10:56 AM
[2019-07-06] MEDS: DILAUDID IV PRN (12:06)
--- NOTE | 2019-07-06 15:01 | PROGRESS NOTE ---
DATE: 07/06/2019 SUBJECTIVE: Patient denies having any acute complaints this morning. OBJECTIVE: Vital Signs: Temperature 98.4 degrees, pulse 75 per minute, respiratory rate 20 per minute, blood pressure 139/62, pulse oximetry 98% on room air. General: The patient is alert and oriented x3. She does not appear to be in any acute distress. Cardiovascular System: First and second heart sounds are audible without any murmurs or gallops. Respiratory System: Bilateral lung air entry is good without any rales or rhonchi. Gastrointestinal System: Abdomen is soft and nondistended. Surgical wound appears to be healing well with minimal serosanguineous drainage. IMPRESSION: 1. Postop Jonathan's procedure for a perforated diverticulum, which was done on 06/21/2019. 2. Hypothyroidism. PLAN: The patient will be continued with broad-spectrum IV antibiotics along with levothyroxine intravenously. We will continue with wound care and general supportive care including physical therapy. We plan to discharge her home early next week to rehab. cc: MD Camden Abraham MD
[2019-07-07] MEDS: ZOSYN 3.375 GM in NS 50 ML IV SCH ×5 (00:08→23:54)
[2019-07-07] MEDS: DILAUDID IV PRN ×4 (00:21→20:32)
[2019-07-07] MEDS: ROBAXIN 1,000 MG in NS 50 ML IV SCH ×4 (01:11→23:55)
[2019-07-07] MEDS: PERCOCET-10 PO PRN ×5 (03:20→22:48)
[2019-07-07] MEDS: SYNTHROID IV SCH ×2 (05:55→06:15)
[2019-07-07] MEDS: PROTONIX IV SCH ×2 (05:55→06:16)
[2019-07-07] MEDS: SODIUM CHLORIDE 0.9% INJ SCH (05:55)
[2019-07-07] MEDS: LOVENOX SUBQ SCH ×2 (05:56→06:15)
[2019-07-07] MEDS: PERIDEX MT SCH ×2 (09:43→21:16)
--- NOTE | 2019-07-07 10:15 | GENERAL SURGERY PROGRESS NOTE ---
DATE: 07/07/2019 OBJECTIVE: She is afebrile, heart rate 70, blood pressure 124/60. Her stoma is working satisfactorily. Her midline incision looks okay. PLAN: She is to continue IV antibiotics. She is on solid food. I have no new recommendations. cc: MD Camden Cline MD
[2019-07-07] MEDS ORDERED: CATHFLO IV ONE (12:51)
[2019-07-07] MEDS ORDERED: STERILE WATER INJ. INJ ONE (12:51)
--- NOTE | 2019-07-07 14:06 | PROGRESS NOTE ---
DATE: 07/07/2019 SUBJECTIVE: Patient feels well this morning. OBJECTIVE: Vital Signs: Temperature 98.6 degrees, pulse 79 per minute, respiratory rate 18 per minute, blood pressure 132/64, pulse oximetry 95% on room air. General: Patient is alert and oriented x3. She does not appear to be in any acute distress. Cardiovascular System: First and second heart sounds are audible without any murmurs or gallops. Respiratory System: Bilateral lung air entry is slightly decreased, but there are no rales or rhonchi present on auscultation. Gastrointestinal: Abdomen is soft and nondistended. Surgical wound appears to be healing well with slight serosanguineous drainage. IMPRESSION: 1. Postoperative Jonathan's procedure for a perforated diverticulum that was done on 06/21/2019. 2. Hypothyroidism. 3. Generalized deconditioning. PLAN: The patient will be continued on broad-spectrum IV antibiotics along with IV levothyroxine. We will continue with the routine wound care, along with supportive care including physical therapy. She will most likely be discharged to Rehab sometime this week. cc: MD Camden Abraham MD
[2019-07-07] MEDS: PHENERGAN IV PRN (23:55)
[2019-07-08] MEDS: SODIUM CHLORIDE 0.9% INJ SCH (05:33)
[2019-07-08] MEDS: ZOSYN 3.375 GM in NS 50 ML IV SCH ×3 (05:33→11:32)
[2019-07-08] MEDS: PROTONIX IV SCH ×2 (05:33→06:49)
[2019-07-08] MEDS: SYNTHROID IV SCH ×2 (05:33→06:48)
[2019-07-08] MEDS: LOVENOX SUBQ SCH ×2 (05:34→06:49)
[2019-07-08] MEDS: PERCOCET-10 PO PRN ×3 (05:45→13:53)
[2019-07-08] MEDS: ROBAXIN 1,000 MG in NS 50 ML IV SCH ×2 (06:48→09:36)
[2019-07-08 06:50] LABS: BASO# 0.08 X1000 (0.0-0.2); EOS% 9.1 % (0.0-10.0); HEMATOCRIT 34.3 % (37.0-47.0); HEMOGLOBIN 10.6 g/dL (12.0-16.0); IMM GRAN# 0.14 X1000 (0.0-0.04); IMM GRAN% 1.8 % (0.0-0.5); LYMPH# 1.71 X1000 (1.2-3.4); LYMPH% 22.1 % (20.5-51.1); MCH 30.9 PG (27-31); MCHC 30.9 g/dL (33-37); MONO# 0.85 X1000 (0.11-0.59); MPV 8.7 FL (7.4-10.4); NEUT# 4.25 X1000 (1.4-6.5); PLT 604 X1000 (130-400); RBC 3.43 XMIL (4.2-5.4); RDW 14.7 % (11.5-14.5); WBC 7.73 X1000 (4.8-10.8)
[2019-07-08 07:10] LABS: AGAP 12; ALB/GLOB RATIO 0.5; ALBUMIN 2.8 g/dL (3.5-5.0); ALKALINE PHOSPHATASE 205 U/L (32-104); BUN 11 mg/dL (8-22); CALCIUM 9.1 mg/dL (8.8-10.2); CHLORIDE 102 mmol/L (98-107); COSMO 273; CREATININE 0.6 mg/dL (0.5-0.9); ESTIMATED GFR > 60; GLUCOSE 100 mg/dL (70-104); GOT 17 U/L (10-30); GPT 21 U/L (10-36); POTASSIUM 4.2 mmol/L (3.5-5.1); SODIUM 137 mmol/L (136-145); TCO2 23 mmol/L (25-35); TOTAL BILIRUBIN 0.26 mg/dL (0.20-1.00); TOTAL PROTEIN 7.9 g/dL (6.3-8.3)
--- NOTE | 2019-07-08 08:26 | Diag Imaging Result Doc PS360 ---
EXAM: CHEST-2 VIEWS HISTORY: hypoxia TECHNIQUE: Two views COMPARISON: 07/06/2019 FINDINGS: There is a small left pleural effusion. There is atelectasis and/or infiltrates in the left lung base. The appearance is similar to the prior exam. Right lung is clear. No cardiomegaly. No pulmonary edema. No change in the left sided PICC line. IMPRESSION: Stable chest Electronically signed by Jeffrey Kaminski 07/08/2019 8:24 AM
[2019-07-08] MEDS: PERIDEX MT SCH (09:36)
[2019-07-08] MEDS ORDERED: NS 250 ML ONE (11:00)
--- NOTE | 2019-07-08 11:04 | GENERAL SURGERY PROGRESS NOTE ---
DATE: 07/08/2019 SUBJECTIVE: No fevers. No tachycardia. Abdomen is soft. Incision intact. Ostomy pink, viable, stool in the bag. White count is normal at 7, creatinine 0.6. ASSESSMENT AND PLAN: A 62-year-old female status post Jonathan's procedure. From a surgical perspective, she can go home whenever her intravenous antibiotics are arranged. I am going to see her later this week to remove the jeyson. cc: MD Camden Ann MD
[2019-07-08] MEDS: DILAUDID IV PRN ×2 (11:31→17:14)
[2019-07-08] MEDS ORDERED: LEVAQUIN 500 MG/D5W 500 MG/100 ML IVPB IV SCH (12:15)
[2019-07-08 15:52] VITALS: BP 150/73
--- NOTE | 2019-07-09 09:00 | DISCHARGE SUMMARY ---
ADMISSION DATE: 06/18/2019 DISCHARGE DATE: 07/08/2019 DISCHARGING DIAGNOSIS: Acute abdominal pain due to sigmoid diverticulitis with perforation with pelvic abscess. SECONDARY DIAGNOSES: 1. Left pleural effusion, transudate. 2. Electrolyte abnormalities, hypokalemia. 3. Hypothyroidism. 4. Depression. 5. Glucose intolerance. 6. History of breast cancer on the right side, status post bilateral mastectomy with reconstruction recently. 7. Recovering shingles on the right T4. 8. Vitamin B12 deficiency. 9. Menopause. CONSULTS: Dr. Gutierrez. PROCEDURES: 1. Sigmoid colectomy with Jonathan's procedure followed by VALENTIN drain. 2. Peripherally inserted central catheter line on the left side. BRIEF HISTORY: Please see the H and P that was done on 06/18/2019. In brief, she is a 71-year- old white female who came to the hospital with acute abdominal pain, left lower quadrant pain. Initial picture was consistent with acute abdomen. However, she did not have any fever nor white cell count. The patient was initially treated with IV antibiotics and conservative management and failed to improve and follow up x-rays revealed large perforation. Dr. Gutierrez was consulted. He performed the sigmoid colectomy with Jonathan's pouch. Postoperative course was complicated by: 1. Volume overload requiring IV Lasix. 2. Left pleural effusion requiring thoracentesis, drained 700 mL of transudate. 3. Some mild wound dehiscence with leakage of serosanguineous fluid. The patient has poor IV access. PICC line was placed on the left side. The patient did require IV antibiotics for 3 weeks at least because of the intra-abdominal infection. The patient was sent home in stable condition. LABS: CBC: White cell count 7.7, hematocrit 34, platelets 604,000. Sodium 137, potassium 4.2, BUN 11, creatinine 0.6. LFTs were normal. Urinalysis is clear. Followup chest x-ray, residual atelectasis and fluid in the left base. Microbiology, blood cultures initially Staph hominis. Clostridium difficile was negative. DISCHARGE INSTRUCTIONS: Synthroid 125 mcg daily, Ambien 10 at bedtime, vitamin D 04460 units once a week, Fletcher 7.5 q.6 p.r.n. pain, Colace 100 p.o. b.i.d. Robaxin 500 p.o. b.i.d., IV Levaquin daily through the PICC line at least for 2 weeks. She is going to follow up with Dr. Gutierrez to remove the jeyson. Local wound care. Outpatient home health care. Continue the PICC line on the left side. Follow up in my office in 2 weeks. Incentive spirometry as discussed. cc: MD Sushant Armando MD
== END 2019-07-08 17:23 | disposition home health service (06) | DRG 330 ==
LOC: SUPCPDRO → ED 07:00 → 4N 07:01
PROVIDERS: ADMIT Internal Medicine; ATTEND Internal Medicine
PROC: GE.COLS (2019-06-21 10:35)